=== PATIENT | female | born 1975 | race Caucasian/White ===

== ENCOUNTER 2018-07-29 07:48 | Emergency (ER) | payer OTHER, SELFPAY ==
[2018-07-29 07:58] VITALS: BP 125/88; PULSE 87; RESP 16; TEMP 36.7; O2SAT 96
--- NOTE | 2018-07-29 08:11 | ED.GENADULT ---
HPI - General Adult General Chief complaint: Blood/Body fluid exposure Stated complaint: NEEDLE STICK Time Seen by Provider: 07/29/18 08:11 Source: patient Mode of arrival: ambulatory Limitations: no limitations History of Present Illness HPI narrative: Patient states she was cleaning up a deliver room in labor and delivery, when a needle on the counter poked the palm of her left hand. She states she had some bleeding from the site, which was near her 2nd web space. She states that she was not injured in any other way. She states that she believes she was previously vaccinated for hepatitis-B, but a recent titer showed no reaction, so she is in process of being referred back to needed. She has received her 2nd injection. Patient denies any symptoms of illness recently. She states that labor and delivery told her that they did not have the source patient's name, and the needle may have been from the baby. Related Data Allergies Allergy/AdvReac Type Severity Reaction Status Date / Time shellfish derived Allergy Unknown Verified 07/29/18 08:01 [SHELLFISH DERIVED] Hydrocodone Allergy Unknown Uncoded 07/29/18 08:01 SULFA (sulfonamide) Allergy Unknown Uncoded 07/29/18 08:01 Review of Systems Review of Systems All systems reviewed & are unremarkable except as noted in HPI and below Constitutional Denies chills, Denies fever(s), Denies lethargy and Denies weakness Eyes Denies change in vision, Denies eye discharge, Denies irritation and Denies loss of vision ENT Ears, Nose, Mouth, and Throat: Denies change in voice, Denies neck pain and Denies sore throat Cardiovascular Denies chest pain, Denies irregular heart rhythm, Denies lightheadedness, Denies palpitations, Denies dyspnea, Denies dyspnea on exertion and Denies orthopnea Respiratory Denies cough, Denies dyspnea, Denies dyspnea on exertion and Denies wheezing Gastrointestinal Gastrointestinal: Denies abdominal pain, Denies change in bowel habits, Denies diarrhea, Denies nausea and Denies vomiting Genitourinary Denies hematuria, Denies flank pain, Denies urinary incontinence and Denies urinary urgency Musculoskeletal Denies neck pain Integumentary/Breasts Denies pruritus, Denies erythema, Denies rash and Denies wounds Neurologic Denies confusion, Denies loss of vision and Denies weakness Psychiatric Denies anxiety, Denies confusion, Denies depression, Denies homicidal ideation and Denies suicidal ideation Endocrine Denies palpitations Hematologic/Lymphatic Denies easy bruising Allergic/Immunologic Denies wheezing PFSH Medical History Allergic reaction (Resolved) Surgical History No pertinent past surgical history (Acute) Social History Smoking Status: Never smoker Exam Initial Vital Signs Initial Vital Signs: Vital Signs Temperature 98.1 F 07/29/18 07:58 Pulse Rate 87 07/29/18 07:58 Respiratory Rate 16 07/29/18 07:58 Blood Pressure 125/88 07/29/18 07:58 Pulse Oximetry 96 07/29/18 07:58 Const General: cooperative and well developed Nutritional Appearance: well nourished Orientation: alert, awake, oriented x3 and not confused HENMT Head: normocephalic and atraumatic Ears: external ears normal Nose: external nose normal and No nasal discharge Face and sinus: face symmetric and No dry mucous membranes Mouth: oral mucosae normal and moist mucous membranes Eyes General: appearance normal, both eyes and all related structures Resp Effort & Inspection: normal respiratory effort Skin General: no rashes or lesions noted Trauma: puncture ( extremely small, barely visible on patient's left palm in the 2nd web space. No active bleeding.) Neuro General: alert, oriented x3, gait normal and no focal motor deficits Speech: speech normal Extrem General: full ROM, no clubbing, cyanosis or edema, no pedal edema and no calf tenderness Course Course Narrative: I discussed with the patient that this is a very low risk exposure, and that will most definitely ask the labor and delivery staff to definitively identify the source patient. We have discussed that even if the patient was exposed to a needle from the baby, that if the mother is negative for HIV and hepatitis, and that the baby would expected to also be negative. At this point in time I do not feel prophylactic treatment is needed. Baseline needlestick labs will be drawn on the patient, and we will request the same from the source patient in labor and delivery. Any further treatment will be based on the results from the source patient. I have discussed with the patient that she may follow up through occupational health. Orders Ordered: Discontinued Medications Diphtheria/Tetanus/Acell Pertussis (Adacel) 0.5 ml IM .ONCE ONE Stop: 07/29/18 08:25 Last Admin: 07/29/18 09:14 Dose: Vital Signs - 8 hr 07/29/18 07:58 Temperature 98.1 F Pulse Rate 87 Respiratory Rate 16 Blood Pressure 125/88 Pulse Oximetry 96 Medical Decision Making Medical Records Medical records reviewed: Yes I reviewed the patient's medical records. Lab Data Lab results reviewed: Yes I reviewed the patient's lab results. Lab Results 07/29/18 07/29/18 Range/Units 08:48 08:48 ALT 50 (9-52) IU/L Hepatitis C Antibody Negative (NEGATIVE) s/c HIV 1&2 Antibody Negative (NEGATIVE) Discharge Plan Departure Patient Disposition: Home Clinical Impression: Needle stick injury Discharge Date/Time: 07/29/18 09:19 Interventions: ED Discharge Assessment Last Done: 07/29/18 09:17 Instructions: DI for Accidental Exposure to Body Fluids Activity Restrictions/Additional Instructions: Your labs are pending at this time, and blood will be drawn from the source patient as well. Please follow up with the hospital occupational/employee health clinic for follow-up on these results and any further treatment if needed. At this time, due to the low risk nature of this exposure, we will wait to see what the source patient's labs reveal.
--- NOTE | 2018-07-29 08:20 | PC.NURSE ---
Patient reports she was a nonresponder to Hep B. and that her titer was negative. Has received 2 of her 3 vaccinations for Hep B. Recently and has her third one scheduled for next week.
[2018-07-29 09:04] LABS: Alanine Aminotransferase 50 IU/L (9-52)
--- NOTE | 2018-07-29 09:15 | PC.NURSE ---
Patient up to date on TDAP vaccine, MD aware not given.
--- NOTE | 2018-07-29 09:17 | PC.NURSE ---
Patient completed paperwork, consents, etc. DC'd and instructed to contact employee health and fill out incident report in [email or web address].
[2018-07-29 10:02] LABS: HIV 1 and 2 Antibody NEGATIVE (NEGATIVE); Hep C Virus Ab w/Reflex Quant NEGATIVE s/c (NEGATIVE)
[2018-07-31 14:40] LABS: Hepatitis B Surf Ab Qualitativ Reactive (Nonreactive)
== END 2018-07-29 09:19 | disposition home or self-care (01) ==
PROVIDERS: Emergency Provider Emergency Medicine
DX: S61.432A Puncture wound without foreign body of left hand, initial encounter (principal); W46.1XXA Contact with contaminated hypodermic needle, initial encounter
CPT/HCPCS: 36415; 84460; 86703; 86706; 86803; 99282; 99283

== ENCOUNTER → 2018-07-30 13:00 | Outpatient (CLI) | payer OTHER, SELFPAY | DX: Z23 Encounter for immunization (principal) | CPT/HCPCS: 90471; 90686 ==

== ENCOUNTER → 2019-04-01 13:18 | Outpatient (CLI) | payer OTHER, SELFPAY ==
--- NOTE | 2019-04-01 | DI.RAD.S_ITS ---
PROCEDURE: XR THORACIC SPINE 3V INDICATIONS: UPPER BACK PAIN TECHNIQUE: 3 views of the thoracic spine were acquired. COMPARISON: [facility], , THORACO-LUMBAR SPINE 2 VIEWS, 06/09/2007, 16:49. FINDINGS: Bones: There is mild rightward curvature of thoracolumbar spine centered at T11-12 level. Mild to moderate kyphosis of mid thoracic spine centered at T6-7 level is seen. Degenerative endplate changes are noted throughout mid to lower thoracic spine. No fractures or dislocations. No suspicious bony lesions. 12 pairs of ribs are noted, and appear intact where visualized. Soft tissues: No paravertebral stripe thickening. 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 Mild to moderate kyphosis centered at T6-7 level. Mild rightward curvature of thoracolumbar spine centered at T11-12 level. No acute compression fracture or spondylolisthesis. Dictated by: Josue Potter M.D. on 04/01/2019 at 14:38 Approved by: Josue Potter M.D. on 04/01/2019 at 14:39
== END ==
PROVIDERS: PCP Nurse Practitioner; Visit Provider Nurse Practitioner Family
DX: M51.34 Other intervertebral disc degeneration, thoracic region (principal); M40.204 Unspecified kyphosis, thoracic region
CPT/HCPCS: 72072

== ENCOUNTER → 2021-03-23 10:00 | Outpatient (CLI) | payer OTHER, SELFPAY ==
[2021-03-23 10:29] LABS: COVID19 -Nasal RAPID Negative (Negative)
== END ==
PROVIDERS: PCP Naturopath; Visit Provider Obstetrics & Gynecology
DX: Z01.812 Encounter for preprocedural laboratory examination (principal); Z20.822 Contact with and (suspected) exposure to COVID-19
CPT/HCPCS: 87635

== ENCOUNTER 2021-03-23 10:05 | Day surgery (SDC) | payer OTHER, SELFPAY ==
[2021-03-21 08:47] VITALS: BMI 22.2
[2021-03-23] VITALS (10 sets, daily range): BP systolic 123–139; BP diastolic 72–91; PULSE 67–86; RESP 14–19; TEMP 36.6–36.9; O2SAT 98–100; BMI 22.2
--- NOTE | 2021-03-23 | PATH_ITS ---
[facility] Accession Number: [id number] . 01 Material submitted: . endometrium - ENDOMETRIAL CURETTINGS . 02 Diagnosis: Endometrium, Curettings: Disordered proliferative endometrium with rare fragments with features suggestive of glandular and stromal breakdown. No evidence of neoplasia or hyperplasia. [facility] 03/28/2021 1306 Local . 02 Electronically signed: . Rebecca Ren MD, Pathologist NPI- [id number] . 01 Gross description: . The specimen is received in formalin, labeled endometrial curettings, and consists of multiple riley-pink fragments of soft tissue admixed with clotted blood measuring 2.5 x 2.0 x 0.2 cm in aggregate. The specimen is filtered and entirely submitted in cassette A1. ([id number]) /[facility] 03/24/2021 1449 Local . 02 Pathologist provided ICD-10: N95.9 . 02 CPT . 622971 Performed at: 01 [facility] [address], [place], [place] [id number] MD Darshan Roblero MD Phone: [phone] Performed at: 02 [facility] [address] [place], [place] [id number] MD Rebecca Ren MD Phone: [phone]
[2021-03-23] MEDS: LACTATED RINGERS 1,000 ML 42 ML IV (11:08)
--- NOTE | 2021-03-23 11:55 | PM.HP.1 ---
History of Present Illness History of Present Illness Date Patient Seen: 03/23/21 Time Patient Seen: 11:55 Chief complaint: SDC Narrative: Patient is a 46-year-old 2 para 1 presents with menorrhagia. 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 Fibromyalgia Migraine headache POTS (postural orthostatic tachycardia syndrome) Raynauds disease SVT (supraventricular tachycardia) Surgical History (Updated 03/21/21 @ 08:47 by Uzma Mckenna RN) S/P diskectomy S/P T&A (status post tonsillectomy and adenoidectomy) Status post wisdom tooth extraction Family & Social History Social History: household members spouse,children Tobacco & Substance use: Smoking Status Former smoker alcohol intake current alcohol intake frequency a few times a month Substance Use Type does not use Meds Home Medications and Allergies Home Medications Medication Instructions Recorded Confirmed Type melatonin 3 mg tablet 3 mg PO BEDTIME PRN 06/07/19 03/23/21 History budesonide-formoterol HFA 80 2 puff INHALATION BID 03/14/21 03/23/21 History mcg-4.5 mcg/actuation aerosol inhaler cetirizine 10 mg capsule 10 mg PO DAILY PRN 03/14/21 03/21/21 History montelukast 10 mg tablet 10 mg PO DAILY 03/14/21 03/21/21 History albuterol sulfate 1 - 2 puff INHALATION QID PRN 03/21/21 03/23/21 History coenzyme Q10 [Co Q-10] 100 mg PO DAILY 03/21/21 03/21/21 History buspirone 10 mg PO DAILY 03/23/21 03/23/21 History Allergies Allergy/AdvReac Type Severity Reaction Status Date / Time leslie Allergy Severe Anaphylaxis Verified 03/23/21 10:46 hazelnut Allergy Severe Anaphylaxis Verified 03/23/21 10:46 hydrocodone Allergy Severe Hives Verified 03/23/21 10:46 nickel Allergy Severe Hives Verified 03/23/21 10:46 shellfish derived Allergy Severe Anaphylaxis Verified 03/23/21 10:46 [SHELLFISH DERIVED] sulfite Allergy Severe Swelling Verified 05/07/21 10:46 of Lip/Tongue/Throat cobalt Allergy Intermediate Rash Verified 03/23/21 10:46 Exam Vital Signs (past 8 hours): - 03/23/21 10:52 Temperature 98.3 F Pulse Rate 82 Respiratory Rate 18 Blood Pressure 127/85 Pulse Oximetry 98 Oxygen Delivery Method Room Air Narrative Exam Narrative: HEENT: No thyromegaly, no anterior cervical or supraclavicular lymphadenopathy. Lungs:Clear to auscultation bilaterally, no wheezes. Cardiovascular: Regular rate and rhythm, no murmurs, rubs, or gallops. Abdomen: No scars. No hepatosplenomegaly. No masses palpable. External genitalia: Normal Vagina: Normal Cervix: Normal Bimanual exam: 8 Week size uterus. Mobile. Assessment & Plan Assessment & Plan narrative: Assessment: 46-year-old 2 para 1 with menorrhagia Plan: D&C, NovaSure endometrial ablation The risks, benefits, and alternatives to the procedure were explained to the patient. The risks including bleeding, infection, and uterine perforation. She understands these risks and agrees to proceed. A full par Q was held and consent form was signed. COVID-19 COVID-19 status: Negative Result date/Date tested (Pos, Neg/Pending): 03/23/21 Time Spent With Patient Time with patient: less than 15 minutes
[2021-03-23] MEDS: ACETAMINOPHEN 325 MG TABLET 975 MG PO (11:57)
--- NOTE | 2021-03-23 12:00 | PM.PREOP ---
Pre-operative Note COVID-19 COVID-19 status: Negative Result date/Date tested (Pos, Neg/Pending): 03/23/21 Interval Note History & Physical reviewed/Exam performed by Physician: Yes Changes to H&P: No H&P completed within 30 days and has changed as indicated here:: 03/23/21
--- NOTE | 2021-03-23 12:20 | SUR.OPER ---
Lithotomy on padded OR bed, head on pillow, arms secured on padded arm boards at <90 degrees abduction. Legs secured in padded yellow fins stirrups.
--- NOTE | 2021-03-23 13:13 | SUR.OPER ---
Novasure ablation settings: length 4.0, width 3.6, power 79, time 107 seconds.
[2021-03-23] MEDS: fentaNYL 100 MCG/2 ML INJ IV (13:27)
[2021-03-23] MEDS: hydrOXYzine 50 MG/ML INJ 25 MG IM (13:30)
[2021-03-23] MEDS: OXYCODONE IR 5 MG TABLET PO (13:34)
--- NOTE | 2021-03-25 15:00 | PM.GYNOP.1 ---
Operative Date/Time/Diagnoses Date of procedure: 03/23/21 Time of procedure: 12:45 Pre-op diagnosis: Menorrhagia Post-op diagnosis: same Procedure & Clinicians Procedure: Procedures Operation Date: 03/23/21 11:45 Actual Procedures Side Surgeon cari chong Novasure Ablation with suture Felicita Jane MD Indications: Menorrhagia Surgeon: Felicita Jane Anesthesia Type: General (LMA) Operative Notes Findings: 7 week size anteverted uterus Closure Type: not applicable Specimen(s): endometrial curettings Estimated blood loss (mL): 5 Blood products transfused: none Procedure in detail: After informed consent was obtained, the patient was taken to the operating room where she was placed in the dorsal supine position. After adequate LMA general anesthesia was achieved, she was placed in the dorsal lithotomy position, and prepped and draped in the usual sterile fashion. A bivalve speculum was placed into the vagina and the anterior lip of the cervix grasped with a single-tooth tenaculum. The cervical os was sequentially dilated to the # 8 Hegar dilator. Gentle sharp curettage was performed yielding a large amount of endometrial curettings. The uterus was measured from the internal os to the fundus of the uterus and measured 4 cm. This was set on the generator and the NovaSure catheter. The NovaSure catheter passed easily into the endometrial cavity and was opened. The width was 3.6 cm. This was set on the generator. These measurements indicated a power of 79 w. The cervix was capped, the cavity assessment was performed and passed. The cycle was initiated and lasted 107 seconds. At the completion of the cycle the cervix was on capped, the catheter was closed and removed from the uterus. The single-tooth tenaculum was removed from the anterior lip of the cervix. The bivalve speculum was removed from the vagina. Sponge, lap, and instrument counts were correct x2. The patient tolerated the procedure well, and was taken to PACU in stable condition. Complications: none Post-operative Condition: stable Disposition: PACU Plan for aftercare: Home after recovery
== END 2021-03-23 14:30 | disposition home or self-care (01) ==
PROVIDERS: PCP Naturopath; Referring Provider Obstetrics & Gynecology; Visit Provider Obstetrics & Gynecology
PROC: 0U5B8ZZ Destruction of Endometrium, Via Natural or Artificial Opening Endoscopic (ICD-10-PCS; CPT 58563; principal; 2021-03-23 11:45)
DX: N95.9 Unspecified menopausal and perimenopausal disorder (principal); Q79.60 Ehlers-Danlos syndrome, unspecified; J45.909 Unspecified asthma, uncomplicated; M79.7 Fibromyalgia; I73.00 Raynaud's syndrome without gangrene
CPT/HCPCS: 58353; J1100; J2250; J2405; J2704; J3010; J3410

== ENCOUNTER 2021-05-02 03:06 | Emergency (ER) | payer OTHER, SELFPAY ==
[2021-05-02] VITALS (8 sets, daily range): BP systolic 128–147; BP diastolic 71–90; PULSE 91–131; RESP 18–28; TEMP 36.7; O2SAT 98–100; BMI 21.7
--- NOTE | 2021-05-02 03:34 | DI.RAD.S_ITS ---
PROCEDURE: XR CHEST 1V INDICATIONS: chest pain TECHNIQUE: One view of the chest was acquired. COMPARISON: [facility], CHEST 1 VIEW, 07/11/2014, 9:33. [facility], , CHEST 2 VIEW, 02/01/2010, 12:08. FINDINGS: Surgical changes and devices: None. Lungs and pleura: Lungs are large in volume as has been previously the case. No pleural effusions or pneumothorax. Mediastinum: Mediastinal contours appear normal. Heart size is normal. Bones and chest wall: No suspicious bony lesions. Overlying soft tissues appear unremarkable. IMPRESSION: Large lung volumes, which may reflect an aggressive inspiratory effort but also can be seen in the setting of COPD. No definite source of chest pain is seen. Dictated by: Yousuf Howard M.D. on 05/02/2021 at 7:22 Approved by: Yousuf Howard M.D. on 05/02/2021 at 7:27
--- NOTE | 2021-05-02 03:51 | ED.ARRPALP ---
HPI - Arrhythmia/Palpitations General Chief Complaint: Arrhythmia/Palpitations Stated Complaint: pt states tachycardia Time Seen by Provider: 05/02/21 03:20 Source: patient and family Mode of arrival: Ambulatory Limitations: no limitations History of Present Illness HPI narrative: The patient has POTS syndrome, but also has depression/anxiety. She presents tonight with tachycardia, insomnia, and anxiety. Her doctor recently started on nortriptyline, about 1 week ago. She has been having the tachycardia anxiety prior to this past week. Last night and tonight she now has insomnia associated with the above symptoms. She has significant difficulty sleeping last night. She is up again tonight. She denies recent illness. She has no URI symptoms, cough, chest pain, or dyspnea. After starting nortriptyline, she was experiencing dry mouth, decreased appetite, constipation. She has no urinary complaints. She has no nausea vomiting. Related Data Home Medications Medication Instructions Recorded Confirmed melatonin 3 mg tablet 3 mg PO BEDTIME PRN 06/07/19 03/23/21 budesonide-formoterol HFA 80 2 puff INHALATION BID 03/14/21 03/23/21 mcg-4.5 mcg/actuation aerosol inhaler cetirizine 10 mg capsule 10 mg PO DAILY PRN 03/14/21 03/21/21 montelukast 10 mg tablet 10 mg PO DAILY 03/14/21 03/21/21 albuterol sulfate 1 - 2 puff INHALATION QID PRN 03/21/21 03/23/21 coenzyme Q10 [Co Q-10] 100 mg PO DAILY 03/21/21 03/21/21 buspirone 10 mg PO DAILY 03/23/21 03/23/21 Previous Rx's Medication Instructions Recorded hydromorphone [Dilaudid] 2 mg PO Q4H PRN #7 tab 03/23/21 Allergies Allergy/AdvReac Type Severity Reaction Status Date / Time leslie Allergy Severe Anaphylaxis Verified 03/23/21 10:46 hazelnut Allergy Severe Anaphylaxis Verified 03/23/21 10:46 hydrocodone Allergy Severe Hives Verified 03/23/21 10:46 nickel Allergy Severe Hives Verified 03/23/21 10:46 shellfish derived Allergy Severe Anaphylaxis Verified 03/23/21 10:46 [SHELLFISH DERIVED] sulfite Allergy Severe Swelling Verified 03/23/21 10:46 of Lip/Tongue/Throat cobalt Allergy Intermediate Rash Verified 03/23/21 10:46 Review of Systems Constitutional Constitutional: Reports anorexia, Denies daytime sleepiness, Reports difficulty sleeping, Denies fatigue, Denies fever(s), Denies headache(s) and Denies weakness Eyes Eyes: Denies change in vision ENT Ears, Nose, Mouth, and Throat: Denies headache(s) and Denies sore throat Cardiovascular Cardiovascular: Denies chest pain, Denies syncope, Reports rapid heart rate, Denies dyspnea and Denies dyspnea on exertion Respiratory Respiratory: Denies cough, Denies dyspnea, Denies dyspnea on exertion and Denies wheezing Gastrointestinal Gastrointestinal: Reports as per HPI Genitourinary Genitourinary: Denies dysuria and Denies urinary urgency Genitourinary: Denies dysuria and Denies urinary urgency Musculoskeletal Musculoskeletal: Denies back pain and Denies myalgias Integumentary/Breasts Skin/Breast: Reports pruritus, Denies erythema, Denies rash and Denies wounds Neurologic Neurologic: Denies syncope, Denies headache(s) and Denies weakness Psychiatric Psychiatric: Reports anxiety Endocrine Endocrine: Denies fatigue Allergic/Immunologic Allergic/Immunologic: Denies wheezing Patient History Medical History 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 Fibromyalgia Migraine headache POTS (postural orthostatic tachycardia syndrome) Raynauds disease SVT (supraventricular tachycardia) Surgical History S/P diskectomy S/P T&A (status post tonsillectomy and adenoidectomy) Status post wisdom tooth extraction Social History household members: spouse and children Smoking Status: Former smoker alcohol intake: current Smoking Status: Former smoker alcohol intake frequency: a few times a month Substance Use Type: does not use Exam Initial Vital Signs Initial Vital Signs: Vital Signs Temperature 98.1 F 05/02/21 03:19 Pulse Rate 131 H 05/02/21 03:19 Respiratory Rate 26 H 05/02/21 03:19 Blood Pressure 137/90 05/02/21 03:19 Pulse Oximetry 100 05/02/21 03:19 Const General: cooperative and anxious Nutritional Appearance: average body habitus Limitations: altered mental status [facility] Throat: posterior oropharynx normal Eyes Conjunctivae: conjunctivae normal Sclera: sclerae normal Pupils: PERRL EOM: EOM intact bilaterally Neck Neck: No lymphadenopathy and No JVD Resp Auscultation: clear to auscultation bilaterally Cardio Rate: regular rate Rhythm: regular rhythm Heart Sounds: S1 normal, S2 normal and no murmurs GI Palpation: soft Percussion: normal to percussion Auscultation: normal bowel sounds Back/Spine/Pelvis Back: No CVA tenderness Skin General: no rashes or lesions noted, No jaundice and No petechiae Neuro General: patient alert, patient oriented x3, gait normal and no focal motor deficits Speech: speech normal Extrem General: no pedal edema Course Course Course Narrative: The patient's heart rate 110-120 to 90 with 1 L of IV hydration. Labs, EKG and chest x-ray are reassuring. Although the POTS syndrome creates the patient's current symptoms, is seems as if the new medication is exacerbating her symptoms. I am going to advise her to follow-up with her doctor and discuss the medication. Orders Ordered: ED Orders 05/02/21 EKG-12 Lead Stat 05/02/21 03:25 Complete Blood Count AUTO DIFF Stat Comprehensive Metabolic Panel Stat Lipase Stat Troponin & CK Cardiac Panel Stat 05/02/21 03:34 XR chest 1V Stat Discontinued Medications Sodium Chloride (Normal Saline 0.9%) 1,000 mls @ 1,000 mls/hr IV BOLUS ONE Stop: 05/02/21 04:58 Last Infusion: 05/02/21 05:03 Dose: 0 mls/hr Documented by: Admin: 05/02/21 04:03 Dose: 1,000 mls/hr Documented by: FILI Vital Signs Vital signs: Vital Signs - 8 hr 05/02/21 03:19 05/02/21 03:28 05/02/21 03:30 Temperature 98.1 F Pulse Rate 131 H 114 H 116 H Respiratory Rate 26 H 26 H 28 H Blood Pressure 137/90 147/71 H Pulse Oximetry 100 100 100 05/02/21 04:00 05/02/21 04:30 05/02/21 04:59 Temperature Pulse Rate 96 H 97 H 97 H Respiratory Rate 23 18 25 H Blood Pressure 143/85 H 142/82 H 142/82 H Pulse Oximetry 99 100 98 MDM - Arrhythmia/Palpitations Lab Data Result diagrams: 05/02/21 03:25 05/02/21 03:25 Labs: Lab Results 05/02/21 05/02/21 Range/Units 03:25 03:25 WBC 10.1 (4.5-11.0) X10^3/uL RBC 4.23 (4.0-5.2) X10^6/uL Hgb 13.6 (12.0-16.0) g/dL Hct 39.2 (36-46) % MCV 92.6 (80-100) fL MCH 32.2 (26-34) PG MCHC 34.8 (30-36) % RDW 12.2 (11.6-14.8) % Plt Count 336 (150-400) X10^3/uL Neut % (Auto) 44.3 L (50-75) % Lymph % (Auto) 36.9 (25-40) % Lake % (Auto) 10.1 (3-14) % Eos % (Auto) 7.7 H (2-4) % Baso % (Auto) 1.0 (0-2) % Neut # (Auto) 4500 (5471-5007) /uL Lymph # (Auto) 3700 (8818-1606) /uL Lake # (Auto) 1000 H (0-900) /uL Eos # (Auto) 800 H (0-450) /uL Baso # (Auto) 100 (0-100) /uL Sodium 135 L (137-145) mmol/L Potassium 3.6 (3.4-5.1) mmol/L Chloride 105 (98-107) mmol/L Carbon Dioxide 21 L (22-32) mmol/L BUN 10 (7-17) mg/dL Creatinine 0.59 (0.52-1.04) mg/dL Estimated GFR > 60.0 (>60) mL/min BUN/Creatinine Ratio 16.9 (6-22) Glucose 103 H (70-100) mg/dL Calcium 9.4 (8.4-10.2) mg/dL Total Bilirubin 0.4 (0.2-1.3) mg/dL AST 28 (14-36) IU/L ALT 19 (<35) IU/L Alkaline Phosphatase 55 (38-126) U/L Total Creatine Kinase 105 (30-135) U/L CK-MB (CK-2) 1.37 (<2.37) ng/mL CK-MB (CK-2) Rel Index 1.3 L (1.5-5.0) % Troponin I < 0.012 (0.01-0.034) ng/mL Total Protein 7.8 (6.3-8.2) g/dL Albumin 4.5 (3.5-5.0) g/dL Globulin 3.3 (1.7-4.1) g/dL Albumin/Globulin Ratio 1.4 (1.0-2.8) Lipase 92 (23-300) U/L Imaging Data Chest x-ray: Radiologist's Impresson: No acute cardiopulmonary process. ECG Data Attestation: I personally reviewed and interpreted this ECG as follows: (Sinus tachycardia rate 121 beats per minute. Normal intervals. No ectopy. Possible LAE. No acute ST T wave changes.) Discharge Plan Departure Patient Disposition: Home Clinical Impression: POTS (postural orthostatic tachycardia syndrome) Instructions: DI for Tachycardia Activity Restrictions/Additional Instructions: Continue current medications. Contact her doctor about the nortriptyline use. Be sure you are drinking plenty of fluids on a daily basis. Return here as necessary. Prescriptions: No Action budesonide-formoterol [Symbicort] 80-4.5 mcg/actuation HFA aerosol inhaler 2 puff inhalation BID RF: 0 All Day Allergy (cetirizine) 10 mg capsule 10 mg PO DAILY PRN (Reason: Seasonal allergies) RF: 0 montelukast 10 mg tablet 10 mg PO DAILY RF: 0 albuterol sulfate 90 mcg/actuation Hfa Aerosol Inhaler 1 - 2 puff INHALATION QID PRN (Reason: Shortness Of Breath) RF: 0 coenzyme Q10 [Co Q-10] 100 mg Capsule 100 mg PO DAILY RF: 0 buspirone 5 mg tablet 10 mg PO DAILY RF: 0 hydromorphone [Dilaudid] 2 mg tablet 2 mg PO Q4H PRN (Reason: pain) Qty: 7 RF: 0 melatonin 3 mg tablet 3 mg PO BEDTIME PRN (Reason: Sleep) RF: 0 Referrals: Jennifer Mancini ND [Primary Care Provider] -
[2021-05-02 03:52] LABS: Alanine Aminotransferase 19 IU/L (<35); Albumin 4.5 g/dL (3.5-5.0); Albumin Globulin Ratio 1.4 (1.0-2.8); Alkaline Phosphatase 55 U/L (38-126); Aspartate Aminotransferase 28 IU/L (14-36); BUN Creatinine Ratio 16.9 (6-22); Bilirubin Total 0.4 mg/dL (0.2-1.3); Blood Urea Nitrogen 10 mg/dL (7-17); Calcium 9.4 mg/dL (8.4-10.2); Carbon Dioxide 21 mmol/L (22-32); Chloride 105 mmol/L (98-107); Creatine Kinase 105 U/L (30-135); Estimated Glomerular Filt Rate > 60.0 mL/min (>60); Globulin 3.3 g/dL (1.7-4.1); Glucose 103 mg/dL (70-100); HEMOLYSIS < 15 (0-50); Lipase 92 U/L (23-300); Potassium 3.6 mmol/L (3.4-5.1); Sodium 135 mmol/L (137-145); Total Protein 7.8 g/dL (6.3-8.2)
[2021-05-02 03:58] LABS: Add Manual Diff / Slide Review NO; Basophils Absolute Auto 100 /uL (0-100); Eosinophils Absolute Auto 800 /uL (0-450); Eosinophils Percent Auto 7.7 % (2-4); Hematocrit 39.2 % (36-46); Hemoglobin 13.6 g/dL (12.0-16.0); Lymphocytes Absolute Auto 3700 /uL (1100-4500); Lymphocytes Percent Auto 36.9 % (25-40); Mean Corpuscular HGB Conc 34.8 % (30-36); Mean Corpuscular Hemoglobin 32.2 PG (26-34); Mean Corpuscular Volume 92.6 fL (80-100); Monocytes Absolute Auto 1000 /uL (0-900); Monocytes Percent Auto 10.1 % (3-14); Neutrophils Absolute Auto 4500 /uL (1500-7000); Neutrophils Percent Auto 44.3 % (50-75); Platelet Count 336 X10^3/uL (150-400); Red Blood Cell Count 4.23 X10^6/uL (4.0-5.2); Red Cell Distribution Width 12.2 % (11.6-14.8); White Blood Cell Count 10.1 X10^3/uL (4.5-11.0)
[2021-05-02 04:03] LABS: Troponin I < 0.012 ng/mL (0.01-0.034)
[2021-05-02] MEDS: SODIUM CHLORIDE 0.9% 1,000 ML 1000 ML IV (04:03)
[2021-05-02 04:07] LABS: CKMB % Relative Index 1.3 % (1.5-5.0); Creatine Kinase MB 1.37 ng/mL (<2.37)
--- NOTE | 2021-05-02 04:45 | PC.NURSE ---
Pt ambulated with a steady gait
== END 2021-05-02 05:58 | disposition home or self-care (01) ==
PROVIDERS: Emergency Provider Emergency Medicine; PCP Naturopath
DX: I49.8 Other specified cardiac arrhythmias (principal); G47.00 Insomnia, unspecified
CPT/HCPCS: 36415; 71045; 80053; 82550; 82553; 83690; 84484; 85025; 93005

== ENCOUNTER 2021-05-02 15:33 | Emergency (ER) | payer OTHER, SELFPAY ==
[2021-05-02] VITALS (8 sets, daily range): BP systolic 129–151; BP diastolic 81–92; PULSE 73–115; RESP 16–26; TEMP 37; O2SAT 95–100; BMI 21.4
[2021-05-02 16:52] LABS: Add Manual Diff / Slide Review NO; Basophils Absolute Auto 100 /uL (0-100); Basophils Percent Auto 0.7 % (0-2); Eosinophils Absolute Auto 400 /uL (0-450); Eosinophils Percent Auto 4.1 % (2-4); Hematocrit 38.8 % (36-46); Hemoglobin 13.4 g/dL (12.0-16.0); Lymphocytes Absolute Auto 2500 /uL (1100-4500); Lymphocytes Percent Auto 29.6 % (25-40); Mean Corpuscular HGB Conc 34.7 % (30-36); Mean Corpuscular Hemoglobin 32.5 PG (26-34); Mean Corpuscular Volume 93.6 fL (80-100); Monocytes Absolute Auto 900 /uL (0-900); Monocytes Percent Auto 10.3 % (3-14); Neutrophils Absolute Auto 4700 /uL (1500-7000); Neutrophils Percent Auto 55.3 % (50-75); Platelet Count 319 X10^3/uL (150-400); Red Blood Cell Count 4.14 X10^6/uL (4.0-5.2); Red Cell Distribution Width 12.5 % (11.6-14.8); White Blood Cell Count 8.5 X10^3/uL (4.5-11.0)
[2021-05-02 17:01] LABS: Alanine Aminotransferase 17 IU/L (<35); Albumin 4.4 g/dL (3.5-5.0); Albumin Globulin Ratio 1.5 (1.0-2.8); Alkaline Phosphatase 42 U/L (38-126); Aspartate Aminotransferase 29 IU/L (14-36); BUN Creatinine Ratio 11.3 (6-22); Bilirubin Total 0.5 mg/dL (0.2-1.3); Blood Urea Nitrogen 6 mg/dL (7-17); Calcium 9.2 mg/dL (8.4-10.2); Carbon Dioxide 22 mmol/L (22-32); Chloride 106 mmol/L (98-107); Creatine Kinase 101 U/L (30-135); Estimated Glomerular Filt Rate > 60.0 mL/min (>60); Globulin 2.9 g/dL (1.7-4.1); Glucose 106 mg/dL (70-100); HEMOLYSIS < 15 (0-50); Potassium 3.7 mmol/L (3.4-5.1); Sodium 137 mmol/L (137-145); Total Protein 7.3 g/dL (6.3-8.2)
[2021-05-02 17:13] LABS: Troponin I < 0.012 ng/mL (0.01-0.034)
[2021-05-02 17:16] LABS: CKMB % Relative Index 1.1 % (1.5-5.0); Creatine Kinase MB 1.09 ng/mL (<2.37)
--- NOTE | 2021-05-02 17:25 | ED_ITS ---
HPI - Arrhythmia/Palpitations General Chief Complaint: Arrhythmia/Palpitations Stated Complaint: states extremely high heart rate Time Seen by Provider: 05/02/21 15:44 Source: patient Mode of arrival: Wheelchair Limitations: no limitations History of Present Illness HPI narrative: 46F former smoker with history of anxiety, depression and POTS presents with the 2nd visit of the day for tachycardia. She had a very thorough workup and was discharged. She was home and in her normal state of health much of the day and was preparing to have a zoom call with her doctor when she felt her heart race again which included pressure in her anterior neck and major dizzy and lightheaded. She return to the emergency department for evaluation. She denies chest pain or shortness of breath. She is not dizzy nor weak or li ghtheaded. Her heart rate head stabilized into the 70s and 80s soon after her arrival. She just started nortriptyline a few days ago and is concerned that may be contributing to her symptoms. MD complaint: rapid heart beat and heart racing Related Data Home Medications Medication Instructions Recorded Confirmed melatonin 3 mg tablet 3 mg PO BEDTIME PRN 06/07/19 03/23/21 budesonide-formoterol HFA 80 2 puff INHALATION BID 03/14/21 03/23/21 mcg-4.5 mcg/actuation aerosol inhaler cetirizine 10 mg capsule 10 mg PO DAILY PRN 03/14/21 03/21/21 montelukast 10 mg tablet 10 mg PO DAILY 03/14/21 03/21/21 albuterol sulfate 1 - 2 puff INHALATION QID PRN 03/21/21 03/23/21 coenzyme Q10 [Co Q-10] 100 mg PO DAILY 03/21/21 03/21/21 buspirone 10 mg PO DAILY 03/23/21 03/23/21 Previous Rx's Medication Instructions Recorded hydromorphone [Dilaudid] 2 mg PO Q4H PRN #7 tab 03/23/21 diltiazem HCl See Rx Instructions .ROUTE 05/02/21 .COMPLEX #20 tab Allergies Allergy/AdvReac Type Severity Reaction Status Date / Time leslie Allergy Severe Anaphylaxis Verified 03/23/21 10:46 hazelnut Allergy Severe Anaphylaxis Verified 03/23/21 10:46 hydrocodone Allergy Severe Hives Verified 05/07/21 10:46 nickel Allergy Severe Hives Verified 03/23/21 10:46 shellfish derived Allergy Severe Anaphylaxis Verified 03/23/21 10:46 [SHELLFISH DERIVED] sulfite Allergy Severe Swelling Verified 03/23/21 10:46 of Lip/Tongue/Throat cobalt Allergy Intermediate Rash Verified 03/23/21 10:46 Review of Systems Constitutional Constitutional: Denies chills, Denies fatigue, Denies fever(s), Denies frequent falls, Denies lethargy and Denies weakness Eyes Eyes: Denies change in vision, Denies eye discharge, Denies irritation and Denies loss of vision ENT Ears, Nose, Mouth, and Throat: Denies change in voice, Denies dizziness, Denies neck pain, Denies sore throat and Denies throat swelling Cardiovascular Cardiovascular: Denies chest pain, Denies irregular heart rhythm, Reports lightheadedness, Reports palpitations, Denies dyspnea, Denies dyspnea on exertion and Denies orthopnea Respiratory Respiratory: Denies cough, Denies dyspnea, Denies dyspnea on exertion and Denies wheezing Gastrointestinal Gastrointestinal: Denies abdominal pain, Denies change in bowel habits, Denies diarrhea, Denies nausea and Denies vomiting Musculoskeletal Musculoskeletal: Denies neck pain and Denies numbness Integumentary/Breasts Skin/Breast: Denies pruritus, Denies erythema, Denies rash and Denies wounds Neurologic Neurologic: Denies behavioral changes, Denies confusion, Denies dizziness, Denies frequent falls, Denies loss of vision, Denies numbness and Denies weakness Psychiatric Psychiatric: Denies anxiety, Denies behavioral changes, Denies confusion, Denies depression, Denies homicidal ideation and Denies suicidal ideation Endocrine Endocrine: Denies fatigue, Denies flushing and Reports palpitations Hematologic/Lymphatic Hematologic/Lymphatic: Denies easy bruising Allergic/Immunologic Allergic/Immunologic: Denies urticaria, Denies throat swelling and Denies wheezing Patient History Medical History 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 Well- developed patient, in mild distress. Anxious and tearful HEAD: Atraumatic. Normocephalic. EYES: Pupils equal round and reactive. Extraocular motions intact. No scleral icterus. No injection or drainage. ENT: Nose without bleeding, purulent drainage. Throat without erythema, tonsillar hypertrophy or exudate. Airway patent. NECK: Trachea midline. Non tender CARDIOVASCULAR: Regular rate and rhythm without murmurs, gallops, or rubs. RESPIRATORY: Clear to auscultation. Breath sounds equal bilaterally. No wheezes, rales, or rhonchi. GASTROINTESTINAL: Abdomen soft, non-tender, nondistended. EXTREMITIES: No edema or joint tenderness. BACK: Nontender without deformity or crepitance. No flank tenderness. NEURO: AOx3. SKIN: No rash or erythema of visible areas Initial Vital Signs Initial Vital Signs: Vital Signs Temperature 98.6 F 05/02/21 15:40 Pulse Rate 104 H 05/02/21 15:40 Respiratory Rate 23 05/02/21 15:40 Blood Pressure 142/85 H 05/02/21 15:40 Pulse Oximetry 100 05/02/21 15:40 Course Orders Ordered: ED Orders 05/02/21 15:49 EKG-12 Lead Stat 05/02/21 16:00 Complete Blood Count AUTO DIFF Stat Comprehensive Metabolic Panel Stat Troponin & CK Cardiac Panel Stat Vital Signs Vital signs: Vital Signs - 8 hr 05/02/21 15:40 05/02/21 15:49 05/02/21 16:00 Temperature 98.6 F Pulse Rate 104 H 115 H 101 H Respiratory Rate 23 Blood Pressure 142/85 H Pulse Oximetry 100 99 98 05/02/21 16:18 05/02/21 16:30 Temperature Pulse Rate 104 H 97 H Respiratory Rate 20 Blood Pressure 144/92 H 148/85 H Pulse Oximetry 99 98 MDM - Arrhythmia/Palpitations Lab Data Result diagrams: 05/02/21 16:00 05/02/21 16:00 Labs: Lab Results 05/02/21 05/02/21 Range/Units 16:00 16:00 WBC 8.5 (4.5-11.0) X10^3/uL RBC 4.14 (4.0-5.2) X10^6/uL Hgb 13.4 (12.0-16.0) g/dL Hct 38.8 (36-46) % MCV 93.6 (80-100) fL MCH 32.5 (26-34) PG MCHC 34.7 (30-36) % RDW 12.5 (11.6-14.8) % Plt Count 319 (150-400) X10^3/uL Neut % (Auto) 55.3 (50-75) % Lymph % (Auto) 29.6 (25-40) % Webb % (Auto) 10.3 (3-14) % Eos % (Auto) 4.1 H (2-4) % Baso % (Auto) 0.7 (0-2) % Neut # (Auto) 4700 (4167-9322) /uL Lymph # (Auto) 2500 (8712-7003) /uL Webb # (Auto) 900 (0-900) /uL Eos # (Auto) 400 (0-450) /uL Baso # (Auto) 100 (0-100) /uL Sodium 137 (137-145) mmol/L Potassium 3.7 (3.4-5.1) mmol/L Chloride 106 (98-107) mmol/L Carbon Dioxide 22 (22-32) mmol/L BUN 6 L (7-17) mg/dL Creatinine 0.53 (0.52-1.04) mg/dL Estimated GFR > 60.0 (>60) mL/min BUN/Creatinine Ratio 11.3 (6-22) Glucose 106 H (70-100) mg/dL Calcium 9.2 (8.4-10.2) mg/dL Total Bilirubin 0.5 (0.2-1.3) mg/dL AST 29 (14-36) IU/L ALT 17 (<35) IU/L Alkaline Phosphatase 42 (38-126) U/L Total Creatine Kinase 101 (30-135) U/L CK-MB (CK-2) 1.09 (<2.37) ng/mL CK-MB (CK-2) Rel Index 1.1 L (1.5-5.0) % Troponin I < 0.012 (0.01-0.034) ng/mL Total Protein 7.3 (6.3-8.2) g/dL Albumin 4.4 (3.5-5.0) g/dL Globulin 2.9 (1.7-4.1) g/dL Albumin/Globulin Ratio 1.5 (1.0-2.8) Point of Care Testing Glucose POC 126 MDM Narrative Medical decision making narrative: Patient with increasing symptoms over the past few days. She states that her symptoms seem to be ramping up after she recently started nortriptyline. She has had 2 very reassuring physical exam is with normal labs and return of normal vital signs. She is quite anxious and this is keeping her up at night, it seems likely that is a bit of of multifactorial scenario. 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 I have given extensive reassurance, instructions regarding return precautions and follow-up. Her questions been answered to her apparent satisfaction Discharge Plan Departure Patient Disposition: Home Clinical Impression: Tachycardia, POTS (postural orthostatic tachycardia syndrome) Instructions: DI for Tachycardia Activity Restrictions/Additional Instructions: *You have been diagnosed with [tachycardia resolved. Very reassuring physical exam, history and labs.] *What to do: * as we discussed, please consider stopping your newly prescribed nortriptyline. Also, it is reasonable to take a dose of the short acting diltiazem when your symptoms are present. Otherwise, Please continue to take your regular medications as directed. [ ] New medication prescriptions sent to your pharmacy: [ ] [ ] New medication written as a paper prescription [x ] No new medications given *Please follow up with your primary care provider in 2-3 days, call for an appointment. Let them know you were seen in the Emergency Department and that we ask that you be seen in follow up. We will electronically transmit a record of today's note if your PCP is in our system *If you do not have a primary care provider please contact the [facility] Resource line at [phone]. They will ask some questions about your medical history and help get you set up with a doctor in the community. *Return to Emergency Department if you should have any new, worsening or concerning symptoms, such as [fever greater than 101 F, shaking chills, worsening pain, persistent vomiting or other bothersome symptoms] Prescriptions: New diltiazem HCl 60 mg tablet See Rx Instructions .ROUTE .COMPLEX Qty: 20 RF: 0 No Action budesonide-formoterol [Symbicort] 80-4.5 mcg/actuation HFA aerosol inhaler 2 puff inhalation BID RF: 0 All Day Allergy (cetirizine) 10 mg capsule 10 mg PO DAILY PRN (Reason: Seasonal allergies) RF: 0 montelukast 10 mg tablet 10 mg PO DAILY RF: 0 albuterol sulfate 90 mcg/actuation Hfa Aerosol Inhaler 1 - 2 puff INHALATION QID PRN (Reason: Shortness Of Breath) RF: 0 coenzyme Q10 [Co Q-10] 100 mg Capsule 100 mg PO DAILY RF: 0 buspirone 5 mg tablet 10 mg PO DAILY RF: 0 hydromorphone [Dilaudid] 2 mg tablet 2 mg PO Q4H PRN (Reason: pain) Qty: 7 RF: 0 melatonin 3 mg tablet 3 mg PO BEDTIME PRN (Reason: Sleep) RF: 0 Referrals: Jennifer Mancini ND [Primary Care Provider] - Mook Lucero MD [Physician] -
== END 2021-05-02 19:17 | disposition home or self-care (01) ==
PROVIDERS: Emergency Provider Emergency Medicine; PCP Naturopath
DX: I49.8 Other specified cardiac arrhythmias (principal); R00.0 Tachycardia, unspecified; G47.00 Insomnia, unspecified
CPT/HCPCS: 36415; 71045; 80053; 82550; 82553; 82962; 83690; 84484; 85025; 93005; 93010; 99283; 99284

== ENCOUNTER 2021-05-04 18:10 | Emergency (ER) | payer OTHER, SELFPAY ==
[2021-05-04] VITALS (7 sets, daily range): BP systolic 119–144; BP diastolic 72–86; PULSE 72–99; RESP 19–23; TEMP 36.8; O2SAT 96–99; BMI 21.1
--- NOTE | 2021-05-04 18:17 | DI.RAD.S_ITS ---
PROCEDURE: XR CHEST 1V INDICATIONS: chest pain TECHNIQUE: One view of the chest was acquired. COMPARISON: [facility], CR, XR CHEST 1V, 05/02/2021, 3:37. FINDINGS: Surgical changes and devices: None. Lungs and pleura: Lungs are clear. No pleural effusions or pneumothorax. Mediastinum: Mediastinal contours appear normal. Heart size is normal. Bones and chest wall: No suspicious bony lesions. Overlying soft tissues appear unremarkable. IMPRESSION: No acute cardiopulmonary abnormalities or focal airspace disease. Dictated by: Niraj Garvin M.D. on 05/04/2021 at 18:47 Approved by: Niraj Garvin M.D. on 05/04/2021 at 18:47
--- NOTE | 2021-05-04 18:40 | ED.ARRPALP ---
HPI - Arrhythmia/Palpitations General Chief Complaint: Arrhythmia/Palpitations Stated Complaint: Tachy/Burning Sensation in Chest Time Seen by Provider: 05/04/21 18:18 Source: patient Mode of arrival: Family Vehicle Limitations: no limitations History of Present Illness HPI narrative: 46F former smoker with a history of POTS, anxiety, with a [employer] surgery in March presents with the chief complaint of ongoing tachycardia. this is her 3rd visit in the past few days and she has had thorough evaluations including labs, EKGs and fluids. On each occasion she has improved tremendously and left with heart rate in the 70s and 80s. We had a lengthy discussion about the potential of some new medications contributing and encouraged her to consider stopping her nortriptyline but also added some shorter acting Cardizem to be added to her extended release in the event that symptoms were acting up. She denies any fever chills. She is not dizzy nor weak or lightheaded. She states that when her heart starts racing she often will feel burning and flushing in her neck with some palpitations and chest pressure. She currently is asymptomatic but had been having symptoms this evening. Related Data Home Medications Medication Instructions Recorded Confirmed melatonin 3 mg tablet 3 mg PO BEDTIME PRN 06/07/19 03/23/21 budesonide-formoterol HFA 80 2 puff INHALATION BID 03/14/21 03/23/21 mcg-4.5 mcg/actuation aerosol inhaler cetirizine 10 mg capsule 10 mg PO DAILY PRN 03/14/21 03/21/21 montelukast 10 mg tablet 10 mg PO DAILY 03/14/21 03/21/21 albuterol sulfate 1 - 2 puff INHALATION QID PRN 03/21/21 03/23/21 coenzyme Q10 [Co Q-10] 100 mg PO DAILY 03/21/21 03/21/21 buspirone 10 mg PO DAILY 03/23/21 03/23/21 Previous Rx's Medication Instructions Recorded hydromorphone [Dilaudid] 2 mg PO Q4H PRN #7 tab 03/23/21 diltiazem HCl See Rx Instructions .ROUTE 05/02/21 .COMPLEX #20 tab Allergies Allergy/AdvReac Type Severity Reaction Status Date / Time leslie Allergy Severe Anaphylaxis Verified 03/23/21 10:46 hazelnut Allergy Severe Anaphylaxis Verified 03/23/21 10:46 hydrocodone Allergy Severe Hives Verified 03/23/21 10:46 nickel Allergy Severe Hives Verified 03/23/21 10:46 shellfish derived Allergy Severe Anaphylaxis Verified 03/23/21 10:46 [SHELLFISH DERIVED] sulfite Allergy Severe Swelling Verified 03/23/21 10:46 of Lip/Tongue/Throat cobalt Allergy Intermediate Rash Verified 03/23/21 10:46 Review of Systems Constitutional Constitutional: Denies chills, Denies fatigue, Denies fever(s), Denies frequent falls, Denies lethargy and Denies weakness Eyes Eyes: Denies change in vision, Denies eye discharge, Denies irritation and Denies loss of vision ENT Ears, Nose, Mouth, and Throat: Denies change in voice, Denies dizziness, Denies neck pain, Denies sore throat and Denies throat swelling Cardiovascular Cardiovascular: Reports chest pain, Reports rapid heart rate, Reports irregular heart rhythm, Denies lightheadedness, Reports palpitations, Denies dyspnea, Denies dyspnea on exertion and Denies orthopnea Respiratory Respiratory: Denies cough, Denies dyspnea, Denies dyspnea on exertion and Denies wheezing Gastrointestinal Gastrointestinal: Denies abdominal pain, Denies change in bowel habits, Denies diarrhea, Denies nausea and Denies vomiting Musculoskeletal Musculoskeletal: Denies neck pain and Denies numbness Integumentary/Breasts Skin/Breast: Denies pruritus, Denies erythema, Denies rash and Denies wounds Neurologic Neurologic: Denies behavioral changes, Denies confusion, Denies dizziness, Denies frequent falls, Denies loss of vision, Denies numbness and Denies weakness Psychiatric Psychiatric: Denies anxiety, Denies behavioral changes, Denies confusion, Denies depression, Denies homicidal ideation and Denies suicidal ideation Endocrine Endocrine: Denies fatigue, Denies flushing and Reports palpitations Hematologic/Lymphatic Hematologic/Lymphatic: Denies easy bruising Allergic/Immunologic Allergic/Immunologic: Denies urticaria, Denies throat swelling and Denies wheezing Patient History Medical History 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 Well-developed patient, in mild distress. anxious HEAD: Atraumatic. Normocephalic. EYES: Pupils equal round and reactive. Extraocular motions intact. No scleral icterus. No injection or drainage. ENT: Nose without bleeding, purulent drainage. Throat without erythema, tonsillar hypertrophy or exudate. Airway patent. NECK: Trachea midline. Non tender CARDIOVASCULAR: Regular rate and rhythm without murmurs, gallops, or rubs. RESPIRATORY: Clear to auscultation. Breath sounds equal bilaterally. No wheezes, rales, or rhonchi. GASTROINTESTINAL: Abdomen soft, non-tender, nondistended. EXTREMITIES: No edema or joint tenderness. BACK: Nontender without deformity or crepitance. No flank tenderness. NEURO: AOx3. SKIN: No rash or erythema of visible areas Initial Vital Signs Initial Vital Signs: Vital Signs Pulse Rate 96 H 05/04/21 18:27 Pulse Oximetry 99 05/04/21 18:27 Course Orders Ordered: ED Orders 05/04/21 18:17 XR chest 1V Stat EKG-12 Lead Stat 05/04/21 18:50 Complete Blood Count AUTO DIFF Stat Comprehensive Metabolic Panel Stat Lipase Stat Magnesium Stat TSH w/ Reflex to FT4 Stat Troponin & CK Cardiac Panel Stat 05/04/21 19:14 CT angio chest PE protocol Stat Discontinued Medications Sodium Chloride (Normal Saline 0.9%) 1,000 mls @ 1,000 mls/hr IV BOLUS ONE Stop: 05/04/21 19:31 Last Infusion: 05/04/21 20:28 Dose: 0 mls/hr Documented by: Admin: 05/04/21 18:49 Dose: 1,000 mls/hr Documented by: BUDDY Vital Signs Vital signs: Vital Signs - 8 hr 05/04/21 18:27 05/04/21 18:29 05/04/21 18:30 Temperature 98.2 F Pulse Rate 96 H 99 H 97 H Respiratory Rate 19 Blood Pressure 139/86 144/85 H Pulse Oximetry 99 96 99 05/04/21 19:00 05/04/21 19:36 05/04/21 20:00 Temperature Pulse Rate 84 80 72 Respiratory Rate 23 Blood Pressure 144/83 H Pulse Oximetry 99 97 97 05/04/21 20:09 Temperature Pulse Rate 81 Respiratory Rate 23 Blood Pressure 119/72 Pulse Oximetry 97 MDM - Arrhythmia/Palpitations Lab Data Result diagrams: 05/04/21 18:50 05/04/21 18:50 Labs: Lab Results 05/04/21 05/04/21 05/04/21 Range/Units 18:50 18:50 18:50 WBC 8.5 (4.5-11.0) X10^3/uL RBC 4.24 (4.0-5.2) X10^6/uL Hgb 13.4 (12.0-16.0) g/dL Hct 39.1 (36-46) % MCV 92.3 (80-100) fL MCH 31.6 (26-34) PG MCHC 34.3 (30-36) % RDW 12.2 (11.6-14.8) % Plt Count 336 (150-400) X10^3/uL Neut % (Auto) 60.0 (50-75) % Lymph % (Auto) 25.8 (25-40) % [place] % (Auto) 9.1 (3-14) % Eos % (Auto) 4.2 H (2-4) % Baso % (Auto) 0.9 (0-2) % Neut # (Auto) 5100 (4751-8003) /uL Lymph # (Auto) 2200 (6677-9898) /uL [place] # (Auto) 800 (0-900) /uL Eos # (Auto) 400 (0-450) /uL Baso # (Auto) 100 (0-100) /uL Sodium 137 (137-145) mmol/L Potassium 3.7 (3.4-5.1) mmol/L Chloride 105 (98-107) mmol/L Carbon Dioxide 24 (22-32) mmol/L BUN 7 (7-17) mg/dL Creatinine 0.51 L (0.52-1.04) mg/dL Estimated GFR > 60.0 (>60) mL/min BUN/Creatinine Ratio 13.7 (6-22) Glucose 120 H (70-100) mg/dL Calcium 10.0 (8.4-10.2) mg/dL Magnesium 2.2 (1.6-2.3) mg/dL Total Bilirubin 0.4 (0.2-1.3) mg/dL AST 26 (14-36) IU/L ALT 18 (<35) IU/L Alkaline Phosphatase 39 (38-126) U/L Total Creatine Kinase 101 (30-135) U/L CK-MB (CK-2) 1.24 (<2.37) ng/mL CK-MB (CK-2) Rel Index 1.2 L (1.5-5.0) % Troponin I < 0.012 (0.01-0.034) ng/mL Total Protein 7.6 (6.3-8.2) g/dL Albumin 4.5 (3.5-5.0) g/dL Globulin 3.1 (1.7-4.1) g/dL Albumin/Globulin Ratio 1.5 (1.0-2.8) Lipase 98 (23-300) U/L TSH 1.12 (0.47-4.68) uIU/mL Imaging Data CT scan - chest: Radiologist's Impresson: Eduarda Quinn 46 F [address] Scan ReportSigned Patient: Eduarda QuinnMR#: [id number]: [id number]:[id number]/Sex: 46 / FDate of Service: 05/04/21Loc: EDAccession Number: [id number] Procedure: CT angio chest PE protocol Ordering Provider: Boni Castillo D.O. PROCEDURE: CT ANGIO CHEST PE PROTOCOL INDICATIONS: recurrent palpitations and high HR in the 120s, recent surge TECHNIQUE: After the administration of intravenous contrast, 2 mm thick sections acquired from the pulmonary apices to the posterior costophrenic angles. 3-dimensional maximum intensity projection (MIP) coronal and sagittal reformats were then acquired through the thorax. For radiation dose reduction, the following was used: automated exposure control, adjustment of mA and/or kV according to patient size. COMPARISON: [facility], CT, PE STUDY (CTA CHEST), 02/09/2010, 13:47. FINDINGS: Image quality: Excellent. Pulmonary arteries: Pulmonary arteries are normal in size, and demonstrate no intraluminal filling defects to suggest central pulmonary embolism. Lungs and pleura: Lungs are clear. No pleural effusions or pneumothorax. Central and peripheral airways are patent. Stable 2 mm pleural-based nodule in the posterior right lower lobe. Mediastinum: Heart size is normal, without pericardial effusion. No mediastinal or hilar adenopathy. Thoracic aorta is normal in caliber and enhancement. Esophagus is normal in caliber, without hiatal hernia. Bones and chest wall: No suspicious bony lesions. Ribs and thoracic spine appear intact throughout. Thyroid gland is unremarkable. No axillary or supraclavicular adenopathy. Partially imaged surgical hardware from prior ACDF. Abdomen: Visualized upper abdominal solid organs appear normal in the early arterial phase of enhancement. IMPRESSION: No acute pulmonary emboli. No acute cardiopulmonary abnormalities. Dictated by: Niraj Garvin M.D. on 05/04/2021 at 19:49 Approved by: Niraj Garvin M.D. on 05/04/2021 at 19:55 MDM Narrative Medical decision making narrative: Multiple etiologies for patient's symptoms considered including: [POTS vs. anxiety vs. PE vs. other] Patient's symptoms improved over duration of stay with above-stated therapies. Findings and discharge diagnosis discussed with patient/family followed by verbalization of understanding Return precautions discussed with patient/family whom verbalize understanding. Discharge Plan Departure Patient Disposition: Home Clinical Impression: POTS (postural orthostatic tachycardia syndrome) Instructions: DI for Tachycardia Activity Restrictions/Additional Instructions: *You have been diagnosed with [ POTS. Labs, physical exam, CT scan are all very reassuring. As we discussed I will forward your note to cardiology to request prompt follow up with Dr. Lucero] *What to do: *Please continue to take your regular medications as directed. [ ] New medication prescriptions sent to your pharmacy: [ ] [ ] New medication written as a paper prescription [x ] No new medications given *Please follow up with your primary care provider in 2-3 days, call for an appointment. Let them know you were seen in the Emergency Department and that we ask that you be seen in follow up. We will electronically transmit a record of today's note if your PCP is in our system * I have electronically transmitted a copy of today's note which should suffice as the equivalent of an urgent referral, given your multiple visits as of late we would like you have you seen by Dr. Lucero sooner rather than later *Return to Emergency Department if you should have any new, worsening or concerning symptoms, such as [fever greater than 101 F, shaking chills, worsening pain, persistent vomiting or other bothersome symptoms] Prescriptions: No Action budesonide-formoterol [Symbicort] 80-4.5 mcg/actuation HFA aerosol inhaler 2 puff inhalation BID RF: 0 All Day Allergy (cetirizine) 10 mg capsule 10 mg PO DAILY PRN (Reason: Seasonal allergies) RF: 0 montelukast 10 mg tablet 10 mg PO DAILY RF: 0 diltiazem HCl 60 mg tablet See Rx Instructions .ROUTE .COMPLEX Qty: 20 RF: 0 albuterol sulfate 90 mcg/actuation Hfa Aerosol Inhaler 1 - 2 puff INHALATION QID PRN (Reason: Shortness Of Breath) RF: 0 coenzyme Q10 [Co Q-10] 100 mg Capsule 100 mg PO DAILY RF: 0 buspirone 5 mg tablet 10 mg PO DAILY RF: 0 hydromorphone [Dilaudid] 2 mg tablet 2 mg PO Q4H PRN (Reason: pain) Qty: 7 RF: 0 melatonin 3 mg tablet 3 mg PO BEDTIME PRN (Reason: Sleep) RF: 0 Referrals: Jennifer Mancini ND [Primary Care Provider] - Mook Lucero MD [Physician] -
[2021-05-04] MEDS: SODIUM CHLORIDE 0.9% 1,000 ML 1000 ML IV (18:49)
[2021-05-04 18:59] LABS: Add Manual Diff / Slide Review NO; Basophils Absolute Auto 100 /uL (0-100); Basophils Percent Auto 0.9 % (0-2); Eosinophils Absolute Auto 400 /uL (0-450); Eosinophils Percent Auto 4.2 % (2-4); Hematocrit 39.1 % (36-46); Hemoglobin 13.4 g/dL (12.0-16.0); Lymphocytes Absolute Auto 2200 /uL (1100-4500); Lymphocytes Percent Auto 25.8 % (25-40); Mean Corpuscular HGB Conc 34.3 % (30-36); Mean Corpuscular Hemoglobin 31.6 PG (26-34); Mean Corpuscular Volume 92.3 fL (80-100); Monocytes Absolute Auto 800 /uL (0-900); Monocytes Percent Auto 9.1 % (3-14); Neutrophils Absolute Auto 5100 /uL (1500-7000); Platelet Count 336 X10^3/uL (150-400); Red Blood Cell Count 4.24 X10^6/uL (4.0-5.2); Red Cell Distribution Width 12.2 % (11.6-14.8); White Blood Cell Count 8.5 X10^3/uL (4.5-11.0)
[2021-05-04 19:12] LABS: Alanine Aminotransferase 18 IU/L (<35); Albumin 4.5 g/dL (3.5-5.0); Albumin Globulin Ratio 1.5 (1.0-2.8); Alkaline Phosphatase 39 U/L (38-126); Aspartate Aminotransferase 26 IU/L (14-36); BUN Creatinine Ratio 13.7 (6-22); Bilirubin Total 0.4 mg/dL (0.2-1.3); Blood Urea Nitrogen 7 mg/dL (7-17); Carbon Dioxide 24 mmol/L (22-32); Chloride 105 mmol/L (98-107); Creatine Kinase 101 U/L (30-135); Estimated Glomerular Filt Rate > 60.0 mL/min (>60); Globulin 3.1 g/dL (1.7-4.1); Glucose 120 mg/dL (70-100); HEMOLYSIS < 15 (0-50); Lipase 98 U/L (23-300); Magnesium 2.2 mg/dL (1.6-2.3); Potassium 3.7 mmol/L (3.4-5.1); Sodium 137 mmol/L (137-145); Total Protein 7.6 g/dL (6.3-8.2)
--- NOTE | 2021-05-04 19:14 | DI.CT.S_ITS ---
PROCEDURE: CT ANGIO CHEST PE PROTOCOL INDICATIONS: recurrent palpitations and high HR in the 120s, recent surge TECHNIQUE: After the administration of intravenous contrast, 2 mm thick sections acquired from the pulmonary apices to the posterior costophrenic angles. 3-dimensional maximum intensity projection (MIP) coronal and sagittal reformats were then acquired through the thorax. For radiation dose reduction, the following was used: automated exposure control, adjustment of mA and/or kV according to patient size. COMPARISON: [facility], CT, PE STUDY (CTA CHEST), 02/09/2010, 13:47. FINDINGS: Image quality: Excellent. Pulmonary arteries: Pulmonary arteries are normal in size, and demonstrate no intraluminal filling defects to suggest central pulmonary embolism. Lungs and pleura: Lungs are clear. No pleural effusions or pneumothorax. Central and peripheral airways are patent. Stable 2 mm pleural-based nodule in the posterior right lower lobe. Mediastinum: Heart size is normal, without pericardial effusion. No mediastinal or hilar adenopathy. Thoracic aorta is normal in caliber and enhancement. Esophagus is normal in caliber, without hiatal hernia. Bones and chest wall: No suspicious bony lesions. Ribs and thoracic spine appear intact throughout. Thyroid gland is unremarkable. No axillary or supraclavicular adenopathy. Partially imaged surgical hardware from prior ACDF. Abdomen: Visualized upper abdominal solid organs appear normal in the early arterial phase of enhancement. IMPRESSION: No acute pulmonary emboli. No acute cardiopulmonary abnormalities. Dictated by: Niraj Garvin M.D. on 05/04/2021 at 19:49 Approved by: Niraj Garvin M.D. on 05/04/2021 at 19:55
[2021-05-04 19:23] LABS: Troponin I < 0.012 ng/mL (0.01-0.034)
[2021-05-04 19:27] LABS: CKMB % Relative Index 1.2 % (1.5-5.0); Creatine Kinase MB 1.24 ng/mL (<2.37)
[2021-05-04 20:16] LABS: TSH w/ Reflex to FT4 1.12 uIU/mL (0.47-4.68)
== END 2021-05-04 20:33 | disposition home or self-care (01) ==
PROVIDERS: Emergency Provider Emergency Medicine; PCP Naturopath
DX: I49.8 Other specified cardiac arrhythmias (principal); R00.0 Tachycardia, unspecified; R07.9 Chest pain, unspecified
CPT/HCPCS: 36415; 71045; 71275; 80053; 82550; 82553; 83690; 83735; 84443; 84484; 85025; 93005; 93010; 96360; 96361; 99284

== ENCOUNTER 2021-06-07 17:05 | Emergency (ER) | payer OTHER, SELFPAY ==
[2021-06-07 17:50] VITALS: BP 145/91; PULSE 99; RESP 14; TEMP 36.7; O2SAT 98; BMI 20.9
[2021-06-07 18:56] LABS: Add Manual Diff / Slide Review NO; Basophils Absolute Auto 0 /uL (0-100); Basophils Percent Auto 0.5 % (0-2); Eosinophils Absolute Auto 300 /uL (0-450); Eosinophils Percent Auto 2.8 % (2-4); Hematocrit 40.3 % (36-46); Lymphocytes Absolute Auto 2400 /uL (1100-4500); Lymphocytes Percent Auto 23.1 % (25-40); Mean Corpuscular HGB Conc 34.8 % (30-36); Mean Corpuscular Hemoglobin 32.8 PG (26-34); Mean Corpuscular Volume 94.2 fL (80-100); Monocytes Absolute Auto 1000 /uL (0-900); Monocytes Percent Auto 9.5 % (3-14); Neutrophils Absolute Auto 6800 /uL (1500-7000); Neutrophils Percent Auto 64.1 % (50-75); Platelet Count 369 X10^3/uL (150-400); Red Blood Cell Count 4.27 X10^6/uL (4.0-5.2); Red Cell Distribution Width 12.4 % (11.6-14.8); White Blood Cell Count 10.5 X10^3/uL (4.5-11.0)
[2021-06-07 19:21] LABS: Alanine Aminotransferase 18 IU/L (<35); Albumin 4.7 g/dL (3.5-5.0); Albumin Globulin Ratio 1.5 (1.0-2.8); Alkaline Phosphatase 51 U/L (38-126); Aspartate Aminotransferase 28 IU/L (14-36); BUN Creatinine Ratio 14.5 (6-22); Bilirubin Total 0.4 mg/dL (0.2-1.3); Blood Urea Nitrogen 8 mg/dL (7-17); Calcium 9.7 mg/dL (8.4-10.2); Carbon Dioxide 24 mmol/L (22-32); Chloride 105 mmol/L (98-107); Creatine Kinase 108 U/L (30-135); Estimated Glomerular Filt Rate > 60.0 mL/min (>60); Globulin 3.2 g/dL (1.7-4.1); Glucose 95 mg/dL (70-100); HEMOLYSIS < 15 (0-50); Lipase 113 U/L (23-300); Potassium 4.2 mmol/L (3.4-5.1); Sodium 137 mmol/L (137-145); Total Protein 7.9 g/dL (6.3-8.2)
[2021-06-07 19:32] LABS: Troponin I < 0.012 ng/mL (0.01-0.034)
[2021-06-07 19:36] LABS: CKMB % Relative Index 1.3 % (1.5-5.0); Creatine Kinase MB 1.44 ng/mL (<2.37)
[2021-06-07 20:34] VITALS: BP 132/94; PULSE 96; O2SAT 99
[2021-06-07 21:00] VITALS: BP 135/91; PULSE 75; RESP 23; O2SAT 96
--- NOTE | 2021-06-07 21:26 | ED_ITS ---
HPI - Arrhythmia/Palpitations General Chief Complaint: Arrhythmia/Palpitations Stated Complaint: BP & heartrate keep fluctuating, cotton mouth Time Seen by Provider: 06/07/21 20:44 Source: patient Mode of arrival: Ambulatory Limitations: no limitations History of Present Illness HPI narrative: Patient is a 46-year-old female who is currently being evaluated by her primary doctor with a Holter monitor her who is here for evaluation of an elevated blood pressure, heart rate that keeps going up, cotton mouth, and i nsomnia. All of the symptoms of a going on for the past several weeks but is been worsening over the past couple days. She has an appointment already scheduled tomorrow morning for follow-up. Related Data Home Medications Medication Instructions Recorded Confirmed melatonin 3 mg tablet 3 mg PO BEDTIME PRN 06/07/19 03/23/21 budesonide-formoterol HFA 80 2 puff INHALATION BID 03/14/21 03/23/21 mcg-4.5 mcg/actuation aerosol inhaler (Symbicort) cetirizine 10 mg capsule (All Day 10 mg PO DAILY PRN 03/14/21 03/21/21 Allergy (cetirizine)) montelukast 10 mg tablet 10 mg PO DAILY 03/14/21 03/21/21 albuterol sulfate 90 mcg/actuation 1 - 2 puff INHALATION QID PRN 03/21/21 03/23/21 aerosol inhaler coenzyme Q10 100 mg capsule (Co 100 mg PO DAILY 03/21/21 03/21/21 Q-10) buspirone 5 mg tablet 10 mg PO DAILY 03/23/21 03/23/21 Previous Rx's Medication Instructions Recorded hydromorphone 2 mg tablet 2 mg PO Q4H PRN #7 tab 03/23/21 (Dilaudid) diltiazem HCl 60 mg tablet See Rx Instructions .ROUTE 05/02/21 .COMPLEX #20 tab Allergies Allergy/AdvReac Type Severity Reaction Status Date / Time leslie Allergy Severe Anaphylaxis Verified 06/07/21 17:50 hazelnut Allergy Severe Anaphylaxis Verified 06/07/21 17:50 hydrocodone Allergy Severe Hives Verified 06/07/21 17:50 nickel Allergy Severe Hives Verified 06/07/21 17:50 shellfish derived Allergy Severe Anaphylaxis Verified 06/07/21 17:50 [SHELLFISH DERIVED] sulfite Allergy Severe Swelling Verified 06/07/21 17:50 of Lip/Tongue/Throat cobalt Allergy Intermediate Rash Verified 06/07/21 17:50 Review of Systems Constitutional Constitutional: Denies headache(s) ENT Ears, Nose, Mouth, and Throat: Reports as per HPI and Denies headache(s) Cardiovascular Cardiovascular: Reports as per HPI Respiratory Respiratory: Reports system reviewed and no additional complaints, except as documented Gastrointestinal Gastrointestinal: Reports system reviewed and no additional complaints, except as documented Musculoskeletal Musculoskeletal: Reports system reviewed and no additional complaints, except as documented Integumentary/Breasts Skin/Breast: Reports system reviewed and no additional complaints, except as documented Neurologic Neurologic: Reports system reviewed and no additional complaints, except as documented and Denies headache(s) Psychiatric Psychiatric: Reports system reviewed and no additional complaints, except as documented Hematologic/Lymphatic On Anticoagulants: No Allergic/Immunologic Allergic/Immunologic: Reports system reviewed and no additional complaints, except as documented Patient History Medical History 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 Fibromyalgia Migraine headache POTS (postural orthostatic tachycardia syndrome) Raynauds disease SVT (supraventricular tachycardia) Surgical History S/P diskectomy S/P T&A (status post tonsillectomy and adenoidectomy) Status post wisdom tooth extraction Social History household members: spouse and children Smoking Status: Former smoker alcohol intake: current Smoking Status: Former smoker alcohol intake frequency: holidays/special occasions only Substance Use Type: does not use Exam Initial Vital Signs Initial Vital Signs: Vital Signs Temperature 98.0 F 06/07/21 17:50 Pulse Rate 99 H 06/07/21 17:50 Respiratory Rate 14 06/07/21 17:50 Blood Pressure 145/91 H 06/07/21 17:50 Pulse Oximetry 98 06/07/21 17:50 Const General: cooperative, healthy appearing and comfortable HENMT Head: normal to inspection and normocephalic Mouth: oral mucosae normal Neck Neck: normal visual inspection Resp Effort & Inspection: normal respiratory effort Auscultation: clear to auscultation bilaterally Cardio Rate: regular rate Rhythm: regular rhythm GI Inspection: normal to inspection Skin General: no rashes or lesions noted Neuro General: patient alert, patient awake and moves all extremities Extrem General: normal to inspection and capillary refill normal Psych Appearance: grossly normal and well kempt Course Orders Ordered: ED Orders 06/07/21 17:57 EKG-12 Lead Stat 06/07/21 18:45 Complete Blood Count AUTO DIFF Stat Comprehensive Metabolic Panel Stat Lipase Stat Troponin & CK Cardiac Panel Stat Vital Signs Vital signs: Vital Signs - 8 hr 06/07/21 21:00 Pulse Rate 75 Respiratory Rate 23 Blood Pressure 135/91 H Pulse Oximetry 96 MDM - Arrhythmia/Palpitations Lab Data Attestation: I reviewed the patient's lab results. Result diagrams: 06/07/21 18:45 06/07/21 18:45 Labs: Lab Results 06/07/21 06/07/21 Range/Units 18:45 18:45 WBC 10.5 (4.5-11.0) X10^3/uL RBC 4.27 (4.0-5.2) X10^6/uL Hgb 14.0 (12.0-16.0) g/dL Hct 40.3 (36-46) % MCV 94.2 (80-100) fL MCH 32.8 (26-34) PG MCHC 34.8 (30-36) % RDW 12.4 (11.6-14.8) % Plt Count 369 (150-400) X10^3/uL Neut % (Auto) 64.1 (50-75) % Lymph % (Auto) 23.1 L (25-40) % [place] % (Auto) 9.5 (3-14) % Eos % (Auto) 2.8 (2-4) % Baso % (Auto) 0.5 (0-2) % Neut # (Auto) 6800 (9392-8063) /uL Lymph # (Auto) 2400 (1540-6662) /uL [place] # (Auto) 1000 H (0-900) /uL Eos # (Auto) 300 (0-450) /uL Baso # (Auto) 0 (0-100) /uL Sodium 137 (137-145) mmol/L Potassium 4.2 (3.4-5.1) mmol/L Chloride 105 (98-107) mmol/L Carbon Dioxide 24 (22-32) mmol/L BUN 8 (7-17) mg/dL Creatinine 0.55 (0.52-1.04) mg/dL Estimated GFR > 60.0 (>60) mL/min BUN/Creatinine Ratio 14.5 (6-22) Glucose 95 (70-100) mg/dL Calcium 9.7 (8.4-10.2) mg/dL Total Bilirubin 0.4 (0.2-1.3) mg/dL AST 28 (14-36) IU/L ALT 18 (<35) IU/L Alkaline Phosphatase 51 (38-126) U/L Total Creatine Kinase 108 (30-135) U/L CK-MB (CK-2) 1.44 (<2.37) ng/mL CK-MB (CK-2) Rel Index 1.3 L (1.5-5.0) % Troponin I < 0.012 (0.01-0.034) ng/mL Total Protein 7.9 (6.3-8.2) g/dL Albumin 4.7 (3.5-5.0) g/dL Globulin 3.2 (1.7-4.1) g/dL Albumin/Globulin Ratio 1.5 (1.0-2.8) Lipase 113 (23-300) U/L ECG Data Attestation: I personally reviewed and interpreted this ECG as follows: Interpretation: Sinus rhythm Ventricular rate of 91 Normal axis Normal QRS Normal QTC LVH No ST T wave changes MDM Narrative Medical decision making narrative: Patient has had no ectopy since being here in the ER. Vital signs are unremarkable. Labs are unremarkable. She is currently wearing a Holter monitor in as a follow-up tomorrow. Feel that we can hold on further workup today here in the emergency department. I have a high suspicion that many of her symptoms are related to anxiety. We did discuss that she could take Benadryl this evening to help her sleep. If she needed further sleep aid/ long-term sleep age you need to talk with her primary doctor about this. She was given return precautions and follow-up instructions. She expressed understanding and agreement. Discharge Plan Departure Patient Disposition: Home Clinical Impression: Palpitations Instructions: Arrhythmias Activity Restrictions/Additional Instructions: Your workup here in the emergency department is very reassuring. I recommend that you continue with the Holter monitor and also continue with your follow-up appointment tomorrow morning with your primary doctor. You can take Benadryl tonight to try to help you sleep. Return to the emergency department for any new symptoms Prescriptions: No Action budesonide-formoterol [Symbicort] 80-4.5 mcg/actuation HFA aerosol inhaler 2 puff inhalation BID RF: 0 All Day Allergy (cetirizine) 10 mg capsule 10 mg PO DAILY PRN (Reason: Seasonal allergies) RF: 0 montelukast 10 mg tablet 10 mg PO DAILY RF: 0 diltiazem HCl 60 mg tablet See Rx Instructions .ROUTE .COMPLEX Qty: 20 RF: 0 albuterol sulfate 90 mcg/actuation Hfa Aerosol Inhaler 1 - 2 puff INHALATION QID PRN (Reason: Shortness Of Breath) RF: 0 coenzyme Q10 [Co Q-10] 100 mg Capsule 100 mg PO DAILY RF: 0 buspirone 5 mg tablet 10 mg PO DAILY RF: 0 hydromorphone [Dilaudid] 2 mg tablet 2 mg PO Q4H PRN (Reason: pain) Qty: 7 RF: 0 melatonin 3 mg tablet 3 mg PO BEDTIME PRN (Reason: Sleep) RF: 0 Referrals: Jennifer Mancini ND [Primary Care Provider] -
== END 2021-06-07 21:42 | disposition home or self-care (01) ==
PROVIDERS: Emergency Provider Emergency Medicine; PCP Naturopath
DX: R00.2 Palpitations (principal); G47.00 Insomnia, unspecified
CPT/HCPCS: 36415; 80053; 82550; 82553; 83690; 84484; 85025; 93005; 93010; 99283; 99284

== ENCOUNTER → 2021-07-31 14:57 | Outpatient (CLI) | payer OTHER, SELFPAY ==
[2021-07-31 15:40] LABS: Magnesium 2.1 mg/dL (1.6-2.3)
[2021-07-31 16:10] LABS: Thyroid Stimulating Hormone 0.938 uIU/mL (0.47-4.68)
== END ==
PROVIDERS: PCP Naturopath; Referring Provider Internal Medicine Cardiovascular Disease; Visit Provider Internal Medicine Cardiovascular Disease
DX: I47.1 Supraventricular tachycardia (principal)
CPT/HCPCS: 36415; 83735; 84443

== ENCOUNTER → 2021-08-15 09:11 | Outpatient (CLI) | payer OTHER, SELFPAY ==
--- NOTE | 2021-08-15 | DI.ECHO.S_ITS ---
[place] [facility]---------+ [facility] +---------+ : : [address] : : : : [id number] : : : : Phone: [phone]+ Echocardiogram Report + + :Name: SUSIE SOLIMAN Study Date: 08/15/2021 Height: 66 in : [facility] ReadingLocation: Weight: 130 lb : : Gender: Female BSA: 1.7 m2 : :: 1975 Age: 46 yrs BP: 109/76 mmHg: :Reason For Study: SUPRAVENTRICULAR TACHYCARDIA : :Ordering Physician: SHANEKA, : :SMILEY Performed By: Sana Garces : :Referring: SMILEY MUNROE : + + Interpretation Summary The left ventricle is normal in size and wall thickness. The ejection fraction is estimated to be 60-65%. Diastolic parameters suggest probable normal left ventricular diastolic function and normal filling pressures. The right ventricle is normal in size and function. No significant valvular pathology seen. Procedure: A two-dimensional transthoracic echocardiogram with color flow and Doppler was performed. The study quality was technically good. There is no prior echocardiogram noted for this patient. The patient was in sinus rhythm with heart rates between 66-85 bpm during the exam. Left Ventricle: The left ventricle is normal in size and wall thickness. There is no thrombus. The ejection fraction is estimated to be 60-65%. There are no focal wall motion abnormalities. Diastolic parameters suggest probable normal left ventricular diastolic function and normal filling pressures. Right Ventricle: The right ventricle is normal in size and function. Atria: The left atrial size is normal. In apical four-chamber's view, an artifact seen in the left atrium adjacent to the inter-atrial septum. Right atrial size is normal. There is no Doppler evidence for an interatrial shunt. Mitral Valve: The mitral valve is normal in structure and function. There is trace mitral regurgitation. Aortic Valve: The aortic valve is trileaflet. The aortic valve opens well. There is no aortic valve stenosis. No aortic regurgitation is present. Tricuspid Valve: The tricuspid valve is normal. There is mild tricuspid regurgitation. The right ventricular systolic pressure is estimated to be at least 24 mmHg based on an estimated right atrial pressure of 3 mm Hg. Pulmonic Valve: The pulmonic valve leaflets are thin and pliable; valve motion is normal. There is a trace or physiologic amount of pulmonic regurgitation. Great Vessels: The aortic root is normal size. The dimensions of the ascending aorta are normal. The IVC is of normal diameter and collapses greater than 50% with a sniff. This suggests a low right atrial pressure of 3 mm Hg. Pericardium/ Pleura There is no pericardial effusion. There is no pleural effusion. MMode/2D Measurements & Calculations LVIDd: 4.7 cm LVOT diam: 2.0 cm LVIDs: 3.3 cm Ao root diam: 2.7 cm FS: 29.6 % asc Aorta Diam: 2.7 cm IVSd: 0.47 cm Ao Arch Diam (Prox Trans): 2.4 cm LVPWd: 0.68 cm LV narayanan. diameter/BSA (cm/m^2): 2.8 LV sys. diameter/BSA (cm/m^2): 2.0 LA A2 area: 16.3 cm2 RA long axis: 4.4 cm LA A4 area: 16.1 cm2 RA area: 12.5 cm2 LA length (vol): 4.2 cm RA vol: 30.3 ml LA vol: 52.4 ml RA : 18.2 ml/m2 LA vol index: 31.5 ml/m2 IVC diam: 1.6 cm RVD1 (basal): 3.4 cm TAPSE: 2.4 cm Doppler Measurements & Calculations Ao V2 max: 120.8 cm/sec LVOT Max Richard: 101.5 cm/sec Ao V2 mean: 84.2 cm/sec LV V1 max P.1 mmHg Ao max P.8 mmHg LV V1 VTI: 22.0 cm Ao mean P.2 mmHg PRISCILLA(I,D): 2.6 cm2 Ao V2 VTI: 25.9 cm PRISCILLA(V,D): 2.6 cm2 sev ratio: 0.85 PRISCILLA indexed to BSA (cm^2/m^2): 1.6 MV E max richard: 74.2 cm/sec TR max richard: 228.9 cm/sec MV A max richard: 48.7 cm/sec TR max P.0 mmHg MV E/A: 1.5 PA V2 max: 96.7 cm/sec Med Peak E' Richard: 9.9 cm/sec PA V2 mean: 76.2 cm/sec E/E' med: 7.5 PA mean P.4 mmHg Lat Peak E' Richard: 10.5 cm/sec PA pr(Accel): 13.9 mmHg E/E' lat: 7.1 E/e' average: 7.3 MV dec time: 0.18 sec SV(LVOT): 68.7 ml Reading Physician:11:06 AM
== END ==
PROVIDERS: PCP Naturopath; Referring Provider Internal Medicine Cardiovascular Disease; Visit Provider Internal Medicine Cardiovascular Disease
DX: I07.1 Rheumatic tricuspid insufficiency (principal); I47.1 Supraventricular tachycardia; R00.2 Palpitations
CPT/HCPCS: 93306

== ENCOUNTER → 2022-08-27 13:03 | Outpatient (CLI) | payer BC, SELFPAY ==
--- NOTE | 2022-08-27 13:05 | DI.MRI.S_ITS ---
PROCEDURE: MR ANKLE LT WO CON INDICATIONS: Pain in left ankle and joints of left foot TECHNIQUE: Noncontrast sagittal T1 spin echo and T2 fast spin echo with fat saturation, axial proton density fast spin echo and T2 fast spin echo with fat saturation, coronal T1 spin echo and T2 fast spin echo with fat saturation through the ankle/hindfoot. COMPARISON: None. FINDINGS: Image quality: Excellent. Bones and joints: No bone marrow contusions or fractures. No hindfoot coalitions. No osteochondral injuries of the talar dome. Moderate tibiotalar and subtalar joint effusion is seen, no gross intra-articular loose bodies. Medial structures: The posterior tibialis, flexor digitorum longus, and flexor hallucis longus tendons are intact. Trace amount of fluid distending flexor tendon sheath is seen. The posterior tibial neurovascular bundle appears normal within the tarsal tunnel, without extrinsic mass effect. The deep layer (anterior and posterior tibiotalar ligaments) and superficial layer (tibionavicular, tibiospring, and tibiocalcaneal ligaments) of the deltoid ligament appear normal. The spring ligament components (superomedial calcaneonavicular, medioplantar oblique calcaneonavicular, and inferoplantar longitudinal ligaments) are intact. Lateral structures: The anterior talofibular, calcaneofibular, and posterior talofibular ligaments appear attenuated with intrasubstance T2 hyperintense signal and adjacent soft tissue edema.. More superiorly, the anterior and posterior tibiofibular ligaments appear intact, as is the intermalleolar ligament. The tibiofibular syndesmosis is normal in width at 2 mm or less. The peroneus longus and brevis tendons are markedly thickened with fluid distending tendon sheath and surrounding soft tissue edema at the level of lateral malleolus extending to the level of calcaneocuboid joint.. Adjacent bony peroneal tubercle and retrotrochlear prominence are normal in size. The sinus tarsi demonstrates normal fatty signal, without edema, fibrosis, or cyst formation. Visualized sinus tarsi components (cervical ligament, interosseous talocalcaneal ligament, roots of the inferior extensor retinaculum) appear normal. The calcaneonavicular and calcaneocuboid components of the bifurcate ligament appear intact. The dorsal calcaneocuboid ligament appears intact. Anterior structures: The tibialis anterior, extensor hallucis longus, and extensor digitorum longus tendons appear intact. The dorsal talonavicular ligament appears intact. Posterior and plantar structures: Achilles tendon is intact. Medial and lateral bands of the plantar fascia are of normal thickness. No abductor digiti quinti muscle atrophy to suggest Gar neuropathy. IMPRESSION: 1. Moderate joint effusion, no gross loose bodies. No marrow edema. No fracture or dislocation. 2. Tendinosis, low-grade tenosynovitis and low-grade intrasubstance partial-thickness tear involving peroneus tendons at the level of lateral malleolus extending to the level of calcaneocuboid joint. 3. Sprain/low to moderate grade intrasubstance partial-thickness tear involving anterior and posterior talofibular ligaments and calcaneofibular ligament. 4. Dictated by: Josue Potter M.D. on 08/27/2022 at 16:02 Approved by: Josue Potter M.D. on 08/27/2022 at 16:35
== END ==
PROVIDERS: PCP Naturopath; Referring Provider Nurse Practitioner Family; Visit Provider Nurse Practitioner Family
DX: S93.412A Sprain of calcaneofibular ligament of left ankle, initial encounter (principal); S93.492A Sprain of other ligament of left ankle, initial encounter; M65.872 Other synovitis and tenosynovitis, left ankle and foot; M25.572 Pain in left ankle and joints of left foot; M25.472 Effusion, left ankle
CPT/HCPCS: 73721

== ENCOUNTER → 2022-09-20 07:50 | Outpatient (CLI) | payer BC, SELFPAY ==
--- NOTE | 2022-09-20 | DI.RAD.S_ITS ---
PROCEDURE: FL SHOULDER INJECTION MR/CT LT INDICATIONS: PAIN IN LEFT SHOULDER/PAIN IN LEFT KNEE COMPARISON: None. TECHNIQUE: The indications, alternatives, benefits, risks, and complications of the procedure were explained to the patient. Written informed consent was obtained and placed in the chart. The shoulder was examined fluoroscopically and a site for needle placement chosen for entry into the glenohumeral joint from an anterior approach. The skin was prepped and draped in a sterile fashion, and 1% lidocaine infiltrated from skin down to joint capsule. A spinal needle was inserted into the glenohumeral joint, and a small amount of iodinated contrast media injected to confirm intra-articular placement of the needle tip. This was followed by approximately 12 mL dilute solution of a gadolinium containing MR contrast agent. The needle was removed and a dressing was applied. The patient was given postprocedural instructions and sent to the MR suite for MR imaging. FINDINGS: A single fluoroscopic spot image demonstrates intra-articular location of injected iodinated contrast. IMPRESSION: Successful fluoroscopically guided administration of dilute Gadolinium solution into the shoulder joint for MR arthrogram. Dictated by: Shoaib Salazar M.D. on 09/20/2022 at 9:52 Approved by: Shoaib Salazar M.D. on 09/20/2022 at 9:55
--- NOTE | 2022-09-20 | DI.MRI.S_ITS ---
PROCEDURE: MR SHOULDER LT W CON INDICATIONS: PAIN IN LEFT SHOULDER/PAIN IN LEFT KNEE TECHNIQUE: After the administration of 12 mL of dilute intra-articular Gadolinium contrast, oblique coronal T1 and T2 spin echo with fat saturation, oblique sagittal T1 spin echo with and without fat saturation, oblique sagittal T2 fast spin echo with fat saturation, axial T1 spin echo with fat saturation through the shoulder. COMPARISON: None. FINDINGS: Image quality: Excellent. Rotator cuff: Moderate to high-grade articular surface partial-thickness tear involving distal supraspinatus at its insertion on the humeral head is seen extending to musculotendinous junction. Focal areas of full-thickness perforation in anterior and mid fibers of distal supraspinatus are likely present. Distal infraspinatus tendinosis is seen. Distal subscapularis tendon is intact. No rotator cuff muscle atrophy on sagittal images. Bones and bursae: No bone marrow contusions or fractures. Mild acromioclavicular joint osteoarthritic changes are seen with joint space narrowing and subchondral sclerosis. Capsule and soft tissues: The labrum and glenohumeral ligaments appear intact. The long head of the biceps tendon demonstrates normal location and morphology. The rotator interval appears normal, without fibrosis. The coracohumeral ligament is of normal thickness. No intra-articular bodies. IMPRESSION: 1. Moderate to high-grade articular surface partial-thickness tear involving distal supraspinatus at its insertion on the humeral head is seen extending to musculotendinous junction. Focal areas of full-thickness perforation in anterior mid fibers of distal supraspinatus cannot be excluded. Distal infraspinatus tendinosis. No significant muscle atrophy. 2. Mild acromioclavicular joint osteoarthritis. No fracture or dislocation. No intra-articular loose bodies. 3. No evidence of focal labral tear. Dictated by: Josue Potter M.D. on 09/20/2022 at 11:15 Approved by: Josue Potter M.D. on 09/20/2022 at 11:18
--- NOTE | 2022-09-20 | DI.MRI.S_ITS ---
PROCEDURE: MR KNEE LT WO CON INDICATIONS: PAIN IN LEFT SHOULDER/PAIN IN LEFT KNEE TECHNIQUE: Noncontrast sagittal PD fast spin echo and T2 fast spin echo with fat saturation, sagittal 3-D FLASH with fat saturation; coronal T1 spin echo and PD fast spin echo with fat saturation, and axial PD fast spin echo with fat saturation through the knee. COMPARISON: None. FINDINGS: Image quality: Excellent. Menisci: Signal abnormality is seen within posterior horn of medial meniscus with very subtle inferior articulating surface extension to suggest subtle oblique tear. Lateral meniscus is intact. The meniscal root ligaments appear intact. Cruciate ligaments: The anterior and posterior cruciate ligaments appear intact. Medial structures: The medial collateral ligament appears intact. The posterior oblique ligament, semimembranosus tendon insertions, oblique popliteal ligament, and meniscocapsular junction appear intact. Visualized portions of the pes anserinus tendons appear normal. No abnormal bursal fluid. Lateral structures: The lateral collateral ligament, long and short heads of the biceps femoris tendon appear intact. The popliteus tendon appears normal; the popliteofibular ligament appears intact. Iliotibial band appears normal. Anterior structures: The quadriceps and patellar tendons appear intact. Patellar alignment is normal. No femoral trochlear dysplasia or ventral trochlear prominence. No edema in the infrapatellar fat pad. Bones and cartilage: No bone marrow contusions or fractures. Low-grade chondromalacia and joint space narrowing involving medial femoral tibial compartment and patellofemoral compartment is seen. Joint space: There is trace knee joint fluid. There is a tiny Ca's cyst. Normal appearing synovial plicae are incidentally noted. IMPRESSION: 1. Subtle oblique tear involving posterior horn of medial meniscus extending to inferior articulating surface. No evidence of focal lateral meniscal tear. 2. Cruciate ligaments are intact. Medial and lateral collateral ligaments are intact. 3. 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 No fracture or dislocation. No marrow edema. Trace joint effusion and a tiny bakers cyst. Dictated by: Josue Potter M.D. on 09/20/2022 at 11:11 Approved by: Josue Potter M.D. on 09/20/2022 at 11:13
== END ==
PROVIDERS: PCP Naturopath; Referring Provider Nurse Practitioner Family; Visit Provider Nurse Practitioner Family
DX: S83.242A Other tear of medial meniscus, current injury, left knee, initial encounter (principal); M17.12 Unilateral primary osteoarthritis, left knee; M94.262 Chondromalacia, left knee; M75.112 Incomplete rotator cuff tear or rupture of left shoulder, not specified as traumatic; M19.012 Primary osteoarthritis, left shoulder; M25.562 Pain in left knee; M25.512 Pain in left shoulder
CPT/HCPCS: 23350; 73222; 73721

== ENCOUNTER → 2022-12-20 11:49 | Outpatient (CLI) | payer BC, SELFPAY ==
[2022-12-20 13:55] LABS: Folate > 20.0 ng/mL (2.76-20.0); Vitamin B12 641 pg/mL (239-931)
[2022-12-22 22:39] LABS: Zinc 71 ug/dL (44-115)
[2022-12-23 14:08] LABS: Vitamin B2, Whole Blood 227 ug/L (137-370)
[2022-12-25 06:28] LABS: Vitamin B1 138.7 nmol/L (66.5-200.0)
[2022-12-26 02:48] LABS: Vitamin B6 30.8 ug/L (3.4-65.2)
[2022-12-26 16:07] LABS: Nicotinamide 34.2 ng/mL (5.2-72.1); Nicotinic Acid <5.0 ng/mL (0.0-5.0)
== END ==
PROVIDERS: PCP Naturopath; Referring Provider Nurse Practitioner Family; Visit Provider Nurse Practitioner Family
DX: K13.0 Diseases of lips (principal)
CPT/HCPCS: 36415; 82607; 82746; 83735; 84207; 84252; 84425; 84591; 84630

== ENCOUNTER → 2023-04-21 09:50 | Outpatient (CLI) | payer BC, SELFPAY ==
--- NOTE | 2023-04-21 | DI.US.S_ITS ---
PROCEDURE: US ARTERIAL DUPLEX LE RT INDICATIONS: COMPLEX REGIONAL PAIN SYNDROME 1 TECHNIQUE: Color and pulse Doppler interrogation was performed of the right lower extremity arterial system, with image documentation. COMPARISON: None. FINDINGS: Common femoral artery: 140 cm/sec, with triphasic flow. Deep femoral artery: 110 cm/sec, with triphasic flow. Proximal superficial femoral artery: 135 cm/sec, with triphasic flow. Mid superficial femoral artery: 96 cm/sec, with triphasic flow. Distal superficial femoral artery: 63 cm/sec, with triphasic flow. Popliteal artery: 48 cm/sec, with triphasic flow. Posterior tibial artery: 32 cm/sec, with triphasic flow. Anterior tibial artery/dorsalis pedis: 43 cm/sec, with triphasic flow. Barron-scale imaging description: Negative IMPRESSION: Low-dense of arterial insufficiency to the right lower extremity. Dictated by: Bassam Robin M.D. on 04/21/2023 at 13:42 Approved by: Bassam Robin M.D. on 04/21/2023 at 13:57
== END ==
PROVIDERS: PCP Nurse Practitioner Family; Referring Provider Nurse Practitioner Family; Visit Provider Nurse Practitioner Family
DX: I73.9 Peripheral vascular disease, unspecified (principal); G90.521 Complex regional pain syndrome I of right lower limb
CPT/HCPCS: 93926

== ENCOUNTER → 2024-10-19 08:30 | Outpatient (CLI) | payer BC, SELFPAY ==
--- NOTE | 2024-10-19 08:31 | DI.US.S_ITS ---
PROCEDURE: US PELVIC COMPLETE INDICATIONS: pelvic pain TECHNIQUE: Real-time scanning was performed of the pelvic organs, with image documentation. Additional endovaginal scanning was necessary due to incomplete visualization of the adnexal and endometrial structures by transabdominal scanning. COMPARISON: [facility], US, US PELVIC COMPLETE WITH TRANSVAGINAL, 01/16/2021, 13:44. FINDINGS: Uterus: Uterus is anteverted and normal in size at 5.9 x 3.7 x 4.5 cm. The myometrium is homogeneous. The endometrium measures 6 mm combined thickness. The borders of the endometrial stripe are mildly irregular. No abnormal vascularity can be seen along the endometrial stripe. Ovaries: The right ovary measures 1.8 x 1.3 x 2.8 cm, with a calculated ovarian volume of 3.4 cc. The left ovary measures 2.4 x 1.4 x 1.4 cm, with a calculated ovarian volume of 2.3 cc. The ovaries have a normal sonographic appearance. Less than 12 follicles can be seen in each ovary. No adnexal masses are seen. Other: No pathologic free abdominal or pelvic fluid. IMPRESSION: No imaging explanation is found for this patient's presenting symptoms. We strive to produce accurate, complete, and clear reports of imaging services. To assist us in improving patient care, this report was composed using standard report templates and voice recognition software. Therefore, it may contain abnormal punctuation, insertions and/or omissions. Occasional wrong-word or sound-alike substitutions may occur. Though we review the report and make efforts to correct it, we do recommend that the report be read carefully in proper context to recognize any text inaccuracies. Dictated by: Marty Cabrera M.D. on 10/19/2024 at 12:40 Approved by: Marty Cabrera M.D. on 10/19/2024 at 12:42
== END ==
PROVIDERS: PCP Nurse Practitioner Family; Referring Provider Nurse Practitioner Family; Visit Provider Nurse Practitioner Family
DX: R10.2 Pelvic and perineal pain (principal)
CPT/HCPCS: 76856

== ENCOUNTER → 2025-08-19 09:56 | Outpatient (CLI) | payer BC, SELFPAY ==
[2025-08-19 12:06] LABS: Lithium 0.7 mmol/L (0.6-1.2)
== END ==
LOC: LAB 09:57
PROVIDERS: PCP Nurse Practitioner Family
DX: F31.9 Bipolar disorder, unspecified (principal)
CPT/HCPCS: 36415; 80178